=== PATIENT | male | born 1955 | race Caucasian/White ===

== ENCOUNTER → 2018-03-15 | Outpatient (CLI) | payer MEDICARE, OTHER | END | disposition home or self-care (01) | LOC: VAS 13:18 | DX: R22.41 Localized swelling, mass and lump, right lower limb (principal) | CPT/HCPCS: 93971 ==

== ENCOUNTER 2018-05-07 15:05 | Inpatient (IN) | payer MEDICARE, OTHER ==
[2018-05-07 16:11] LABS: ADD MAN DIFF? NO
[2018-05-07 16:17] LABS: WHITE BLOOD COUNT 23.6 10^3/ul (4.8-10.8)
[2018-05-07 16:17] LABS: ABNORMAL IP MESSAGE 1; BASOPHILS % 0.2 % (0.0-2.0); HEMATOCRIT 31.7 % (42.0-52.0); HEMOGLOBIN 10.4 g/dl (14.0-18.0); IMMATURE GRANS #M 0.14 10^3/ul; IMMATURE GRANS % (M) 0.6 %; LYMPHOCYTES # 0.4 10^3/ul (0.8-2.9); LYMPHOCYTES % 1.6 % (15.0-51.0); MEAN CORPUSCULAR HEMOGLOBIN 26.5 pg (29.0-33.0); MEAN CORPUSCULAR HGB CONC 32.8 g/dl (32.0-37.0); MEAN CORPUSCULAR VOLUME 80.7 fl (82.0-101.0); MEAN PLATELET VOLUME 11.5 fl (7.4-10.4); MONOCYTE # 1.6 10^3/ul (0.3-0.9); MONOCYTES % 6.8 % (0.0-11.0); NEUTROPHIL # 21.4 10^3/ul (1.6-7.5); NEUTROPHILS % 90.8 % (39.0-77.0); PLATELET COUNT 246 10^3/UL (140-415); POSITIVE DIFF @See below; RED BLOOD COUNT 3.93 10^6/ul (4.70-6.10); RED CELL DISTRIBUTION WIDTH 15.3 % (11.5-14.5)
[2018-05-07] MEDS: ACETAMINOPHEN 325 MG TAB PO (16:29)
[2018-05-07] MEDS: SODIUM CHLORIDE 0.9% 1L BAG IV* (16:30)
[2018-05-07] MEDS: CEFEPIME 2GM/50 ML (PMX) 50 ML IVPB (16:30)
[2018-05-07 16:31] LABS: INR 0.98; PROTIME 13.1 Sec (11.9-14.9)
[2018-05-07 16:32] LABS: LACTIC ACID 1.4 mmol/L (0.5-2.0)
[2018-05-07 16:34] LABS: ALANINE AMINOTRANSFERASE 19 IU/L (13-69); ALBUMIN 4.2 g/dl (3.3-4.9); ALBUMIN/GLOBULIN RATIO 1.31; ALKALINE PHOSPHATASE 179 IU/L (42-121); ANION GAP 16 (8-16); ASPARTATE AMINO TRANSFERASE 27 IU/L (15-46); BILIRUBIN,INDIRECT 0.2 mg/dl (0-1.1); BILIRUBIN,TOTAL 0.2 mg/dl (0.2-1.3); BLOOD UREA NITROGEN 47 mg/dl (7-20); CALCIUM 9.2 mg/dl (8.4-10.2); CARBON DIOXIDE 21 mmol/L (21-31); CHLORIDE 103 mmol/L (97-110); CREATININE 3.01 mg/dl (0.61-1.24); POTASSIUM 4.4 mmol/L (3.5-5.1); SODIUM 136 mmol/L (135-144); TOTAL PROTEIN 7.4 g/dl (6.1-8.1)
[2018-05-07] MEDS: VANCOMYCIN 1 GM (PMX) 250 ML IVPB (16:44)
[2018-05-07 16:45] LABS: GLUCOSE 486 mg/dl (70-220); TROPONIN-I < 0.010 ng/ml (0.000-0.120)
[2018-05-07] MEDS ORDERED: ACETAMINOPHEN 325 MG TAB PO ×2 (18:30→20:30)
[2018-05-07] MEDS ORDERED: ONDANSETRON 4 MG INJ IV ×2 (18:30→20:30)
[2018-05-07 18:42] LABS: LACTIC ACID 1.1 mmol/L (0.5-2.0)
[2018-05-07 19:53] LABS: ADD UMIC YES; UR ASCORBIC ACID NEGATIVE (NEGATIVE); UR BACTERIA FEW /HPF (NONE SEEN); UR BILIRUBIN (Dip) NEGATIVE (NEGATIVE); UR BLOOD (Dip) 2+ mg/dL (NEGATIVE); UR CLARITY SLIGHTLY CLOUDY (CLEAR); UR COLOR YELLOW (YELLOW); UR GLUCOSE (Dip) 3+ mg/dL (NEGATIVE); UR KETONES (Dip) NEGATIVE (NEGATIVE); UR LEUKOCYTE ESTERASE (Dip) 2+ Leu/ul (NEGATIVE); UR NITRITE (Dip) POSITIVE (NEGATIVE); UR RBC 3 /HPF (0-5); UR SPECIFIC GRAVITY (Dip) 1.011 (1.003-1.030); UR TOTAL PROTEIN (Dip) 3+ mg/dl (NEGATIVE); UR UROBILINOGEN (Dip) NEGATIVE (NEGATIVE); UR WBC 78 /HPF (0-5)
[2018-05-07] MEDS ORDERED: NACL 0.9% 3 ML SYG IV (20:30)
[2018-05-07] MEDS ORDERED: MAGNESIUM HYDROXIDE 30ML CUP PO (20:30)
[2018-05-07] MEDS ORDERED: VANCOMYCIN IV PER PHARMACY XX (20:30)
[2018-05-07] MEDS: AMLODIPINE 5 MG TAB PO (21:23)
[2018-05-07] MEDS: SOD CHLORIDE 0.9% 1,000 ML IV (21:23)
[2018-05-07] MEDS: HEPARIN 5,000 UNIT/0.5 ML VIAL SC (21:25)
[2018-05-07] MEDS: TAMSULOSIN (SR) 0.4 MG CAP PO (21:26)
[2018-05-07 22:12] LABS: LACTIC ACID 1.1 mmol/L (0.5-2.0)
[2018-05-07] MEDS: INSULIN ASPART [NOVOLOG] 3 ML PEN SC (22:53)
[2018-05-07] MEDS: INSULIN DETEMIR [LEVEMIR] (100 UNITS/ML) SYG SC (22:55)
[2018-05-08] MEDS: ACCU-CHEK XX (02:00)
[2018-05-08] MEDS: SOD CHLORIDE 0.9% 1,000 ML IV ×3 (03:20→20:48)
[2018-05-08] MEDS: LEVOTHYROXINE 25 MCG TAB PO (06:05)
[2018-05-08 06:26] LABS: ADD MAN DIFF? NO
[2018-05-08 06:34] LABS: WHITE BLOOD COUNT 16.5 10^3/ul (4.8-10.8)
[2018-05-08 06:34] LABS: BASOPHILS % 0.2 % (0.0-2.0); EOSINOPHILS % 0.2 % (0.0-7.0); HEMATOCRIT 30.4 % (42.0-52.0); HEMOGLOBIN 9.8 g/dl (14.0-18.0); IMMATURE GRANS % (M) 0.6 %; LYMPHOCYTES # 0.8 10^3/ul (0.8-2.9); LYMPHOCYTES % 4.8 % (15.0-51.0); MEAN CORPUSCULAR HEMOGLOBIN 26.1 pg (29.0-33.0); MEAN CORPUSCULAR HGB CONC 32.2 g/dl (32.0-37.0); MEAN CORPUSCULAR VOLUME 81.1 fl (82.0-101.0); MEAN PLATELET VOLUME 12.2 fl (7.4-10.4); MONOCYTE # 1.4 10^3/ul (0.3-0.9); MONOCYTES % 8.5 % (0.0-11.0); NEUTROPHIL # 14.1 10^3/ul (1.6-7.5); NEUTROPHILS % 85.7 % (39.0-77.0); PLATELET COUNT 223 10^3/UL (140-415); RED BLOOD COUNT 3.75 10^6/ul (4.70-6.10); RED CELL DISTRIBUTION WIDTH 15.6 % (11.5-14.5)
[2018-05-08 06:50] LABS: ALANINE AMINOTRANSFERASE 22 IU/L (13-69); ALBUMIN 3.6 g/dl (3.3-4.9); ALBUMIN/GLOBULIN RATIO 1.09; ALKALINE PHOSPHATASE 144 IU/L (42-121); ANION GAP 11 (8-16); ASPARTATE AMINO TRANSFERASE 36 IU/L (15-46); BILIRUBIN,INDIRECT 0.2 mg/dl (0-1.1); BILIRUBIN,TOTAL 0.2 mg/dl (0.2-1.3); BLOOD UREA NITROGEN 38 mg/dl (7-20); CALCIUM 9.3 mg/dl (8.4-10.2); CARBON DIOXIDE 23 mmol/L (21-31); CHLORIDE 114 mmol/L (97-110); CHOL/HDL RATIO 2.4 RATIO; CHOLESTEROL 98 mg/dl (100-200); GLUCOSE 83 mg/dl (70-220); HDL CHOLESTEROL 40 mg/dl (30-78); LDL CHOLESTEROL,CALCULATED 46 mg/dl; PHOSPHORUS 3.4 mg/dl (2.5-4.9); POTASSIUM 4.2 mmol/L (3.5-5.1); SODIUM 144 mmol/L (135-144); TOTAL PROTEIN 6.9 g/dl (6.1-8.1); TRIGLYCERIDES 58 mg/dl (0-149)
[2018-05-08 07:01] LABS: FREE THYROXINE INDEX (Calc) 2.18 ug/ml (0.65-3.89); T4 (THYROXINE) 5.6 ug/dl (5.5-11.0)
[2018-05-08 07:14] LABS: THYROID STIMULATING HORMONE 0.591 MIU/L (0.465-4.680)
[2018-05-08 07:47] LABS: HEMOGLOBIN A1C 7.4 % (0-5.9)
[2018-05-08] MEDS: INSULIN ASPART [NOVOLOG] 3 ML PEN SC ×7 (08:00→21:00)
[2018-05-08] MEDS: HEPARIN 5,000 UNIT/0.5 ML VIAL SC ×2 (08:05→21:02)
[2018-05-08] MEDS: LINAGLIPTIN 5 MG TABLET PO (08:06)
[2018-05-08] MEDS: AMLODIPINE 5 MG TAB PO ×2 (08:32→20:59)
[2018-05-08] MEDS: CEFEPIME 2GM/50 ML (PMX) 50 ML IVPB (08:32)
[2018-05-08] MEDS ORDERED: GLUCOSE GEL 15 GRAM TUBE PO ×2 (10:00)
[2018-05-08] MEDS ORDERED: DEXTROSE 50% 50 ML SYRINGE IV ×2 (10:00)
[2018-05-08] MEDS ORDERED: GLUCOSE GEL 15 GRAM TUBE BUCCAL (10:00)
[2018-05-08] MEDS ORDERED: GLUCAGON 1 MG INJ IM (10:00)
[2018-05-08] MEDS: TAMSULOSIN (SR) 0.4 MG CAP PO (20:58)
[2018-05-08] MEDS: INSULIN DETEMIR [LEVEMIR] (100 UNITS/ML) SYG SC (21:01)
[2018-05-09] MEDS: ACCU-CHEK XX (02:00)
[2018-05-09] MEDS: SOD CHLORIDE 0.9% 1,000 ML IV ×3 (04:28→18:44)
[2018-05-09 06:37] LABS: ADD MAN DIFF? NO
[2018-05-09 06:42] LABS: BASOPHILS % 0.2 % (0.0-2.0); EOSINOPHILS # 0.2 10^3/ul (0.0-0.5); EOSINOPHILS % 1.5 % (0.0-7.0); HEMATOCRIT 28.2 % (42.0-52.0); HEMOGLOBIN 9.1 g/dl (14.0-18.0); IMMATURE GRANS #M 0.08 10^3/ul; IMMATURE GRANS % (M) 0.6 %; LYMPHOCYTES % 7.1 % (15.0-51.0); MEAN CORPUSCULAR HEMOGLOBIN 26.2 pg (29.0-33.0); MEAN CORPUSCULAR HGB CONC 32.3 g/dl (32.0-37.0); MEAN CORPUSCULAR VOLUME 81.3 fl (82.0-101.0); MEAN PLATELET VOLUME 12.4 fl (7.4-10.4); MONOCYTES % 7.3 % (0.0-11.0); NEUTROPHIL # 11.6 10^3/ul (1.6-7.5); NEUTROPHILS % 83.3 % (39.0-77.0); PLATELET COUNT 220 10^3/UL (140-415); RED BLOOD COUNT 3.47 10^6/ul (4.70-6.10); RED CELL DISTRIBUTION WIDTH 15.8 % (11.5-14.5)
[2018-05-09 06:42] LABS: WHITE BLOOD COUNT 13.9 10^3/ul (4.8-10.8)
[2018-05-09] MEDS: LEVOTHYROXINE 25 MCG TAB PO (06:52)
[2018-05-09 07:06] LABS: ANION GAP 12 (8-16); BLOOD UREA NITROGEN 36 mg/dl (7-20); CALCIUM 8.6 mg/dl (8.4-10.2); CARBON DIOXIDE 20 mmol/L (21-31); CHLORIDE 117 mmol/L (97-110); CREATININE 2.32 mg/dl (0.61-1.24); GLUCOSE 61 mg/dl (70-220); POTASSIUM 3.9 mmol/L (3.5-5.1); SODIUM 145 mmol/L (135-144)
[2018-05-09] MEDS: INSULIN ASPART [NOVOLOG] 3 ML PEN SC ×7 (08:00→20:39)
[2018-05-09] MEDS: LINAGLIPTIN 5 MG TABLET PO (08:36)
[2018-05-09] MEDS: HEPARIN 5,000 UNIT/0.5 ML VIAL SC ×2 (08:37→20:41)
[2018-05-09] MEDS: CEFEPIME 2GM/50 ML (PMX) 50 ML IVPB (08:43)
[2018-05-09] MEDS: VANCOMYCIN 1 GM 250 ML IVPB (10:28)
[2018-05-09] MEDS: AMLODIPINE 5 MG TAB PO ×2 (13:05→20:36)
[2018-05-09] MEDS: TAMSULOSIN (SR) 0.4 MG CAP PO (20:35)
[2018-05-09] MEDS: INSULIN DETEMIR [LEVEMIR] (100 UNITS/ML) SYG SC (20:40)
[2018-05-09 22:34] LABS: PROSTATE SPECIFIC ANTIGEN 0.7 ng/ml (0.0-4.0)
[2018-05-10] MEDS: ACCU-CHEK XX (02:00)
[2018-05-10] MEDS: SOD CHLORIDE 0.9% 1,000 ML IV ×4 (04:03→23:57)
[2018-05-10] MEDS: LEVOTHYROXINE 25 MCG TAB PO (06:36)
[2018-05-10] MEDS: INSULIN ASPART [NOVOLOG] 3 ML PEN SC ×4 (08:00→21:29)
[2018-05-10 08:40] LABS: ADD MAN DIFF? NO
[2018-05-10 08:43] LABS: BASOPHIL # 0.1 10^3/ul (0.0-0.1); BASOPHILS % 0.4 % (0.0-2.0); EOSINOPHILS # 0.3 10^3/ul (0.0-0.5); EOSINOPHILS % 2.1 % (0.0-7.0); HEMATOCRIT 30.8 % (42.0-52.0); HEMOGLOBIN 9.6 g/dl (14.0-18.0); IMMATURE GRANS #M 0.06 10^3/ul; IMMATURE GRANS % (M) 0.5 %; LYMPHOCYTES % 8.1 % (15.0-51.0); MEAN CORPUSCULAR HEMOGLOBIN 25.7 pg (29.0-33.0); MEAN CORPUSCULAR HGB CONC 31.2 g/dl (32.0-37.0); MEAN CORPUSCULAR VOLUME 82.6 fl (82.0-101.0); MONOCYTE # 0.9 10^3/ul (0.3-0.9); MONOCYTES % 6.9 % (0.0-11.0); NEUTROPHIL # 10.2 10^3/ul (1.6-7.5); PLATELET COUNT 222 10^3/UL (140-415); RED BLOOD COUNT 3.73 10^6/ul (4.70-6.10)
[2018-05-10 08:43] LABS: WHITE BLOOD COUNT 12.5 10^3/ul (4.8-10.8)
[2018-05-10 09:12] LABS: ANION GAP 9 (8-16); BLOOD UREA NITROGEN 35 mg/dl (7-20); CALCIUM 8.6 mg/dl (8.4-10.2); CARBON DIOXIDE 19 mmol/L (21-31); CHLORIDE 118 mmol/L (97-110); CREATININE 2.44 mg/dl (0.61-1.24); GLUCOSE 77 mg/dl (70-220); POTASSIUM 4.2 mmol/L (3.5-5.1); SODIUM 142 mmol/L (135-144)
[2018-05-10] MEDS: CEFEPIME 2GM/50 ML (PMX) 50 ML IVPB (11:31)
[2018-05-10] MEDS: LINAGLIPTIN 5 MG TABLET PO (11:32)
[2018-05-10] MEDS: AMLODIPINE 5 MG TAB PO ×2 (11:32→21:33)
[2018-05-10] MEDS: HEPARIN 5,000 UNIT/0.5 ML VIAL SC ×2 (11:33→21:31)
[2018-05-10] MEDS: INSULIN DETEMIR [LEVEMIR] (100 UNITS/ML) SYG SC (21:29)
[2018-05-10] MEDS: TAMSULOSIN (SR) 0.4 MG CAP PO (21:31)
[2018-05-11] MEDS: ACCU-CHEK XX (02:00)
[2018-05-11] MEDS: SOD CHLORIDE 0.9% 1,000 ML IV ×3 (04:03→18:26)
[2018-05-11 05:48] LABS: ADD MAN DIFF? NO
[2018-05-11 05:54] LABS: WHITE BLOOD COUNT 11.1 10^3/ul (4.8-10.8)
[2018-05-11 05:54] LABS: BASOPHIL # 0.1 10^3/ul (0.0-0.1); BASOPHILS % 0.4 % (0.0-2.0); EOSINOPHILS # 0.3 10^3/ul (0.0-0.5); EOSINOPHILS % 2.4 % (0.0-7.0); HEMATOCRIT 30.6 % (42.0-52.0); HEMOGLOBIN 9.6 g/dl (14.0-18.0); IMMATURE GRANS #M 0.06 10^3/ul; IMMATURE GRANS % (M) 0.5 %; LYMPHOCYTES # 0.8 10^3/ul (0.8-2.9); LYMPHOCYTES % 7.3 % (15.0-51.0); MEAN CORPUSCULAR HEMOGLOBIN 25.6 pg (29.0-33.0); MEAN CORPUSCULAR HGB CONC 31.4 g/dl (32.0-37.0); MEAN CORPUSCULAR VOLUME 81.6 fl (82.0-101.0); MEAN PLATELET VOLUME 12.6 fl (7.4-10.4); MONOCYTE # 0.8 10^3/ul (0.3-0.9); MONOCYTES % 7.2 % (0.0-11.0); NEUTROPHIL # 9.1 10^3/ul (1.6-7.5); NEUTROPHILS % 82.2 % (39.0-77.0); PLATELET COUNT 241 10^3/UL (140-415); RED BLOOD COUNT 3.75 10^6/ul (4.70-6.10); RED CELL DISTRIBUTION WIDTH 16.1 % (11.5-14.5)
[2018-05-11] MEDS: LEVOTHYROXINE 25 MCG TAB PO (06:24)
[2018-05-11 06:42] LABS: ANION GAP 10 (8-16); BLOOD UREA NITROGEN 31 mg/dl (7-20); CALCIUM 8.6 mg/dl (8.4-10.2); CARBON DIOXIDE 18 mmol/L (21-31); CHLORIDE 122 mmol/L (97-110); CREATININE 2.36 mg/dl (0.61-1.24); GLUCOSE 97 mg/dl (70-220); POTASSIUM 4.1 mmol/L (3.5-5.1); SODIUM 146 mmol/L (135-144)
[2018-05-11] MEDS: INSULIN ASPART [NOVOLOG] 3 ML PEN SC ×4 (07:52→20:38)
[2018-05-11] MEDS: HEPARIN 5,000 UNIT/0.5 ML VIAL SC ×2 (08:31→20:38)
[2018-05-11] MEDS: LINAGLIPTIN 5 MG TABLET PO (08:32)
[2018-05-11] MEDS: CEFTRIAXONE 1 GM/NS 50 ML IVPB (08:33)
[2018-05-11] MEDS: AMLODIPINE 5 MG TAB PO ×2 (08:33→20:35)
[2018-05-11] MEDS: BETHANECHOL 10 MG TAB PO (20:35)
[2018-05-11] MEDS: TAMSULOSIN (SR) 0.4 MG CAP PO (20:35)
[2018-05-11] MEDS: INSULIN DETEMIR [LEVEMIR] (100 UNITS/ML) SYG SC (20:37)
[2018-05-12] MEDS: ACCU-CHEK XX (03:00)
[2018-05-12] MEDS: SOD CHLORIDE 0.9% 1,000 ML IV ×3 (03:01→20:14)
[2018-05-12] MEDS: LEVOTHYROXINE 25 MCG TAB PO (06:01)
[2018-05-12] MEDS: INSULIN ASPART [NOVOLOG] 3 ML PEN SC ×4 (07:53→20:42)
[2018-05-12] MEDS: BETHANECHOL 10 MG TAB PO ×3 (08:15→20:14)
[2018-05-12] MEDS: HEPARIN 5,000 UNIT/0.5 ML VIAL SC ×2 (08:15→20:16)
[2018-05-12] MEDS: LINAGLIPTIN 5 MG TABLET PO (08:15)
[2018-05-12] MEDS: AMLODIPINE 5 MG TAB PO ×2 (08:19→20:17)
[2018-05-12] MEDS: CEFTRIAXONE 1 GM/NS 50 ML IVPB (08:19)
[2018-05-12] MEDS: TAMSULOSIN (SR) 0.4 MG CAP PO (20:14)
[2018-05-12] MEDS: INSULIN DETEMIR [LEVEMIR] (100 UNITS/ML) SYG SC (20:16)
[2018-05-13] MEDS: ACCU-CHEK XX (01:56)
[2018-05-13] MEDS: ALBUTEROL/IPRATROPIUM (NEB) 3 ML AMP HHN ×2 (03:44→13:39)
[2018-05-13] MEDS: SOD CHLORIDE 0.9% 1,000 ML IV ×2 (04:02→12:37)
[2018-05-13] MEDS: LEVOTHYROXINE 25 MCG TAB PO (06:36)
[2018-05-13] MEDS: INSULIN ASPART [NOVOLOG] 3 ML PEN SC ×7 (07:35→22:21)
[2018-05-13 08:27] LABS: ADD MAN DIFF? NO
[2018-05-13] MEDS: CEFTRIAXONE 1 GM/NS 50 ML IVPB (08:28)
[2018-05-13] MEDS: AMLODIPINE 5 MG TAB PO ×2 (08:31→22:16)
[2018-05-13] MEDS: LINAGLIPTIN 5 MG TABLET PO (08:31)
[2018-05-13] MEDS: BETHANECHOL 10 MG TAB PO ×3 (08:32→22:18)
[2018-05-13] MEDS: HEPARIN 5,000 UNIT/0.5 ML VIAL SC ×2 (08:33→21:59)
[2018-05-13 08:39] LABS: BASOPHILS % 0.2 % (0.0-2.0); EOSINOPHILS # 0.2 10^3/ul (0.0-0.5); EOSINOPHILS % 1.6 % (0.0-7.0); HEMATOCRIT 29.8 % (42.0-52.0); HEMOGLOBIN 9.2 g/dl (14.0-18.0); LYMPHOCYTES # 0.9 10^3/ul (0.8-2.9); LYMPHOCYTES % 7.1 % (15.0-51.0); MEAN CORPUSCULAR HEMOGLOBIN 25.7 pg (29.0-33.0); MEAN CORPUSCULAR HGB CONC 30.9 g/dl (32.0-37.0); MEAN CORPUSCULAR VOLUME 83.2 fl (82.0-101.0); MEAN PLATELET VOLUME 11.9 fl (7.4-10.4); MONOCYTE # 1.1 10^3/ul (0.3-0.9); MONOCYTES % 8.5 % (0.0-11.0); NEUTROPHIL # 10.8 10^3/ul (1.6-7.5); NEUTROPHILS % 81.5 % (39.0-77.0); PLATELET COUNT 270 10^3/UL (140-415); RED BLOOD COUNT 3.58 10^6/ul (4.70-6.10); RED CELL DISTRIBUTION WIDTH 16.2 % (11.5-14.5)
[2018-05-13 08:39] LABS: WHITE BLOOD COUNT 13.2 10^3/ul (4.8-10.8)
[2018-05-13 09:04] LABS: ANION GAP 13 (8-16); BLOOD UREA NITROGEN 30 mg/dl (7-20); CALCIUM 8.9 mg/dl (8.4-10.2); CARBON DIOXIDE 17 mmol/L (21-31); CHLORIDE 122 mmol/L (97-110); CREATININE 2.38 mg/dl (0.61-1.24); GLUCOSE 70 mg/dl (70-220); POTASSIUM 4.2 mmol/L (3.5-5.1); SODIUM 148 mmol/L (135-144)
[2018-05-13] MEDS: FUROSEMIDE 40 MG INJ IV (15:16)
[2018-05-13] MEDS: INSULIN DETEMIR [LEVEMIR] (100 UNITS/ML) SYG SC (21:59)
[2018-05-13] MEDS: TAMSULOSIN (SR) 0.4 MG CAP PO (22:15)
[2018-05-14] MEDS: ACCU-CHEK XX (02:00)
[2018-05-14 06:26] LABS: ADD MAN DIFF? NO
[2018-05-14 06:30] LABS: WHITE BLOOD COUNT 14.2 10^3/ul (4.8-10.8)
[2018-05-14 06:30] LABS: BASOPHIL # 0.1 10^3/ul (0.0-0.1); BASOPHILS % 0.4 % (0.0-2.0); EOSINOPHILS # 0.3 10^3/ul (0.0-0.5); EOSINOPHILS % 2.3 % (0.0-7.0); HEMATOCRIT 29.7 % (42.0-52.0); HEMOGLOBIN 9.2 g/dl (14.0-18.0); LYMPHOCYTES % 7.3 % (15.0-51.0); MEAN CORPUSCULAR HEMOGLOBIN 25.3 pg (29.0-33.0); MEAN CORPUSCULAR VOLUME 81.8 fl (82.0-101.0); MEAN PLATELET VOLUME 11.8 fl (7.4-10.4); MONOCYTE # 1.2 10^3/ul (0.3-0.9); MONOCYTES % 8.4 % (0.0-11.0); NEUTROPHIL # 11.4 10^3/ul (1.6-7.5); NEUTROPHILS % 80.2 % (39.0-77.0); PLATELET COUNT 296 10^3/UL (140-415); RED BLOOD COUNT 3.63 10^6/ul (4.70-6.10); RED CELL DISTRIBUTION WIDTH 16.5 % (11.5-14.5)
[2018-05-14 06:56] LABS: ANION GAP 10 (8-16); BLOOD UREA NITROGEN 30 mg/dl (7-20); CALCIUM 9.2 mg/dl (8.4-10.2); CARBON DIOXIDE 20 mmol/L (21-31); CHLORIDE 121 mmol/L (97-110); CREATININE 2.55 mg/dl (0.61-1.24); GLUCOSE 109 mg/dl (70-220); POTASSIUM 4.2 mmol/L (3.5-5.1); SODIUM 147 mmol/L (135-144)
[2018-05-14] MEDS: LEVOTHYROXINE 25 MCG TAB PO (07:05)
[2018-05-14] MEDS: INSULIN ASPART [NOVOLOG] 3 ML PEN SC ×7 (08:00→21:18)
[2018-05-14] MEDS: HEPARIN 5,000 UNIT/0.5 ML VIAL SC ×2 (08:55→21:18)
[2018-05-14] MEDS: CEFTRIAXONE 1 GM/NS 50 ML IVPB (08:55)
[2018-05-14] MEDS: BETHANECHOL 10 MG TAB PO ×3 (08:56→21:16)
[2018-05-14] MEDS: AMLODIPINE 5 MG TAB PO ×2 (08:56→21:16)
[2018-05-14] MEDS: LINAGLIPTIN 5 MG TABLET PO (08:56)
[2018-05-14] MEDS: DOCUSATE SODIUM 100 MG CAP PO (09:24)
[2018-05-14] MEDS: FINASTERIDE 5 MG TAB PO (17:37)
[2018-05-14] MEDS: INSULIN DETEMIR [LEVEMIR] (100 UNITS/ML) SYG SC (21:15)
[2018-05-14] MEDS: TAMSULOSIN (SR) 0.4 MG CAP PO (21:17)
[2018-05-15] MEDS: ACCU-CHEK XX (02:00)
[2018-05-15] MEDS: LEVOTHYROXINE 25 MCG TAB PO (07:57)
[2018-05-15] MEDS: INSULIN ASPART [NOVOLOG] 3 ML PEN SC ×7 (07:59→22:56)
[2018-05-15] MEDS: BETHANECHOL 10 MG TAB PO ×3 (08:31→21:30)
[2018-05-15] MEDS: TAMSULOSIN (SR) 0.4 MG CAP PO ×2 (08:31→21:30)
[2018-05-15] MEDS: LINAGLIPTIN 5 MG TABLET PO (08:31)
[2018-05-15] MEDS: FINASTERIDE 5 MG TAB PO (08:31)
[2018-05-15] MEDS: CEFTRIAXONE 1 GM/NS 50 ML IVPB (08:31)
[2018-05-15] MEDS: HEPARIN 5,000 UNIT/0.5 ML VIAL SC ×2 (08:31→23:38)
[2018-05-15] MEDS: AMLODIPINE 5 MG TAB PO ×2 (08:32→21:31)
[2018-05-15] MEDS: INSULIN DETEMIR [LEVEMIR] (100 UNITS/ML) SYG SC (22:57)
[2018-05-16] MEDS: ACCU-CHEK XX (02:39)
[2018-05-16] MEDS: LEVOTHYROXINE 25 MCG TAB PO (05:38)
[2018-05-16] MEDS: INSULIN ASPART [NOVOLOG] 3 ML PEN SC ×7 (07:58→21:57)
[2018-05-16] MEDS: FINASTERIDE 5 MG TAB PO (08:34)
[2018-05-16] MEDS: CEFTRIAXONE 1 GM/NS 50 ML IVPB (08:34)
[2018-05-16] MEDS: BETHANECHOL 10 MG TAB PO ×3 (08:34→21:51)
[2018-05-16] MEDS: AMLODIPINE 5 MG TAB PO ×2 (08:35→21:51)
[2018-05-16] MEDS: HEPARIN 5,000 UNIT/0.5 ML VIAL SC ×2 (08:40→21:56)
[2018-05-16] MEDS: TAMSULOSIN (SR) 0.4 MG CAP PO ×2 (08:42→21:51)
[2018-05-16] MEDS: LINAGLIPTIN 5 MG TABLET PO (08:42)
[2018-05-16] MEDS: INSULIN DETEMIR [LEVEMIR] (100 UNITS/ML) SYG SC (21:54)
[2018-05-17] MEDS: ACCU-CHEK XX (02:00)
[2018-05-17 06:06] LABS: ALANINE AMINOTRANSFERASE 70 IU/L (13-69); ALBUMIN 2.7 g/dl (3.3-4.9); ALBUMIN/GLOBULIN RATIO 0.87; ALKALINE PHOSPHATASE 153 IU/L (42-121); ANION GAP 10 (8-16); ASPARTATE AMINO TRANSFERASE 42 IU/L (15-46); BLOOD UREA NITROGEN 40 mg/dl (7-20); CALCIUM 8.8 mg/dl (8.4-10.2); CARBON DIOXIDE 19 mmol/L (21-31); CHLORIDE 121 mmol/L (97-110); CREATININE 2.64 mg/dl (0.61-1.24); GLUCOSE 153 mg/dl (70-220); POTASSIUM 4.1 mmol/L (3.5-5.1); SODIUM 146 mmol/L (135-144); TOTAL PROTEIN 5.8 g/dl (6.1-8.1)
[2018-05-17] MEDS: LEVOTHYROXINE 25 MCG TAB PO (06:34)
[2018-05-17] MEDS: INSULIN ASPART [NOVOLOG] 3 ML PEN SC ×7 (08:00→20:51)
[2018-05-17] MEDS: CEFTRIAXONE 1 GM/NS 50 ML IVPB (08:11)
[2018-05-17] MEDS: HEPARIN 5,000 UNIT/0.5 ML VIAL SC ×2 (08:13→20:50)
[2018-05-17] MEDS: LINAGLIPTIN 5 MG TABLET PO (08:17)
[2018-05-17] MEDS: AMLODIPINE 5 MG TAB PO ×2 (08:17→20:47)
[2018-05-17] MEDS: TAMSULOSIN (SR) 0.4 MG CAP PO ×2 (08:17→20:43)
[2018-05-17] MEDS: FINASTERIDE 5 MG TAB PO (08:17)
[2018-05-17] MEDS: BETHANECHOL 10 MG TAB PO ×3 (08:17→20:43)
[2018-05-17] MEDS: INSULIN DETEMIR [LEVEMIR] (100 UNITS/ML) SYG SC (20:51)
[2018-05-18] MEDS: ACCU-CHEK XX (02:00)
[2018-05-18] MEDS: LEVOTHYROXINE 25 MCG TAB PO (06:02)
[2018-05-18] MEDS: INSULIN ASPART [NOVOLOG] 3 ML PEN SC ×7 (08:00→20:24)
[2018-05-18] MEDS: CEFTRIAXONE 1 GM/NS 50 ML IVPB (08:28)
[2018-05-18] MEDS: HEPARIN 5,000 UNIT/0.5 ML VIAL SC ×2 (08:29→20:23)
[2018-05-18] MEDS: BETHANECHOL 10 MG TAB PO ×3 (08:30→21:44)
[2018-05-18] MEDS: TAMSULOSIN (SR) 0.4 MG CAP PO ×2 (08:31→20:19)
[2018-05-18] MEDS: FINASTERIDE 5 MG TAB PO (08:31)
[2018-05-18] MEDS: LINAGLIPTIN 5 MG TABLET PO (08:31)
[2018-05-18] MEDS: AMLODIPINE 5 MG TAB PO ×2 (08:36→20:22)
[2018-05-18] MEDS: ALBUTEROL/IPRATROPIUM (NEB) 3 ML AMP HHN ×2 (08:57→20:37)
[2018-05-18] MEDS: FUROSEMIDE 20 MG INJ IV (16:08)
[2018-05-18] MEDS: DOCUSATE SODIUM 100 MG CAP PO (17:12)
[2018-05-18] MEDS: INSULIN DETEMIR [LEVEMIR] (100 UNITS/ML) SYG SC (20:25)
[2018-05-19] MEDS: ACCU-CHEK XX (02:00)
[2018-05-19] MEDS: LEVOTHYROXINE 25 MCG TAB PO (06:43)
[2018-05-19] MEDS: ALBUTEROL/IPRATROPIUM (NEB) 3 ML AMP HHN (07:46)
[2018-05-19] MEDS: INSULIN ASPART [NOVOLOG] 3 ML PEN SC ×7 (08:00→17:39)
[2018-05-19] MEDS: FINASTERIDE 5 MG TAB PO (09:25)
[2018-05-19] MEDS: AMLODIPINE 5 MG TAB PO (09:25)
[2018-05-19] MEDS: TAMSULOSIN (SR) 0.4 MG CAP PO (09:25)
[2018-05-19] MEDS: LINAGLIPTIN 5 MG TABLET PO (09:25)
[2018-05-19] MEDS: BETHANECHOL 10 MG TAB PO ×2 (09:25→15:15)
[2018-05-19] MEDS: CEFTRIAXONE 1 GM/NS 50 ML IVPB (09:26)
[2018-05-19] MEDS: HEPARIN 5,000 UNIT/0.5 ML VIAL SC (09:27)
== END 2018-05-19 18:13 | disposition home or self-care (01) | DRG 871 ==
LOC: E/R 15:05 → PP2 18:09
DX: A41.9 Sepsis, unspecified organism (principal); R65.21 Severe sepsis with septic shock; N39.0 Urinary tract infection, site not specified; N17.9 Acute kidney failure, unspecified; D64.9 Anemia, unspecified; E11.65 Type 2 diabetes mellitus with hyperglycemia; N40.1 Benign prostatic hyperplasia with lower urinary tract symptoms; E03.9 Hypothyroidism, unspecified; A49.8 Other bacterial infections of unspecified site; N31.9 Neuromuscular dysfunction of bladder, unspecified; N18.3 Chronic kidney disease, stage 3 (moderate); R39.14 Feeling of incomplete bladder emptying; F71 Moderate intellectual disabilities
CPT/HCPCS: 36415; 71045; 73130-RT; 76775; 76856; 80048; 80053; 80061; 81001; 82962; 83036; 83605; 83735; 84100; 84153; 84154; 84436; 84443; 84479; 84484; 85025; 85610; 85730; 87040; 87086; 93005; 93306; 94640; 94664; 96374; 96375; 97110; 97116; 97162; 97530; 99291-25

== ENCOUNTER 2018-05-29 11:08 | Inpatient (IN) | payer MEDICARE, OTHER ==
[2018-05-29] MEDS ORDERED: ACETAMINOPHEN 325 MG TAB PO (12:00)
[2018-05-29] MEDS ORDERED: ONDANSETRON 4 MG INJ IV (12:00)
[2018-05-29 12:01] LABS: ADD MAN DIFF? NO
[2018-05-29 12:08] LABS: BASOPHIL # 0.1 10^3/ul (0.0-0.1); BASOPHILS % 0.4 % (0.0-2.0); EOSINOPHILS # 0.4 10^3/ul (0.0-0.5); EOSINOPHILS % 2.5 % (0.0-7.0); HEMATOCRIT 27.9 % (42.0-52.0); HEMOGLOBIN 8.6 g/dl (14.0-18.0); LYMPHOCYTES # 0.7 10^3/ul (0.8-2.9); LYMPHOCYTES % 4.1 % (15.0-51.0); MEAN CORPUSCULAR HEMOGLOBIN 24.9 pg (29.0-33.0); MEAN CORPUSCULAR HGB CONC 30.8 g/dl (32.0-37.0); MEAN CORPUSCULAR VOLUME 80.6 fl (82.0-101.0); MEAN PLATELET VOLUME 11.8 fl (7.4-10.4); MONOCYTE # 0.8 10^3/ul (0.3-0.9); NEUTROPHIL # 14.6 10^3/ul (1.6-7.5); NEUTROPHILS % 87.5 % (39.0-77.0); PLATELET COUNT 310 10^3/UL (140-415); RED BLOOD COUNT 3.46 10^6/ul (4.70-6.10); RED CELL DISTRIBUTION WIDTH 15.6 % (11.5-14.5)
[2018-05-29 12:08] LABS: WHITE BLOOD COUNT 16.7 10^3/ul (4.8-10.8)
[2018-05-29 12:27] LABS: ALANINE AMINOTRANSFERASE 29 IU/L (13-69); ALBUMIN 3.3 g/dl (3.3-4.9); ALKALINE PHOSPHATASE 166 IU/L (42-121); ANION GAP 17 (8-16); ASPARTATE AMINO TRANSFERASE 21 IU/L (15-46); BLOOD UREA NITROGEN 56 mg/dl (7-20); CALCIUM 8.8 mg/dl (8.4-10.2); CARBON DIOXIDE 17 mmol/L (21-31); CHLORIDE 115 mmol/L (97-110); CREATININE 3.54 mg/dl (0.61-1.24); GLUCOSE 218 mg/dl (70-220); POTASSIUM 5.4 mmol/L (3.5-5.1); SODIUM 144 mmol/L (135-144); TOTAL PROTEIN 6.6 g/dl (6.1-8.1)
[2018-05-29 12:31] LABS: INR 1.05; PROTIME 13.8 Sec (11.9-14.9); PT RATIO 1.1
[2018-05-29 12:32] LABS: PARTIAL THROMBOPLASTIN TIME 27.8 Sec (25.0-35.0)
[2018-05-29 12:37] LABS: TROPONIN-I < 0.012 ng/ml (0.000-0.120)
[2018-05-29] MEDS ORDERED: GLUCOSE GEL 15 GRAM TUBE PO ×2 (13:30)
[2018-05-29] MEDS ORDERED: GLUCOSE GEL 15 GRAM TUBE BUCCAL (13:30)
[2018-05-29] MEDS ORDERED: DEXTROSE 50% 50 ML SYRINGE IV ×2 (13:30)
[2018-05-29] MEDS ORDERED: GLUCAGON 1 MG INJ IM (13:30)
[2018-05-29 14:11] LABS: LACTIC ACID 0.6 mmol/L (0.5-2.0)
[2018-05-29 14:17] LABS: ALANINE AMINOTRANSFERASE 40 IU/L (13-69); ALBUMIN 3.2 g/dl (3.3-4.9); ALKALINE PHOSPHATASE 176 IU/L (42-121); ANION GAP 17 (8-16); ASPARTATE AMINO TRANSFERASE 22 IU/L (15-46); BILIRUBIN,INDIRECT 0.1 mg/dl (0-1.1); BILIRUBIN,TOTAL 0.1 mg/dl (0.2-1.3); BLOOD UREA NITROGEN 55 mg/dl (7-20); CALCIUM 9.1 mg/dl (8.4-10.2); CARBON DIOXIDE 18 mmol/L (21-31); CHLORIDE 113 mmol/L (97-110); CREATININE 3.48 mg/dl (0.61-1.24); GLUCOSE 226 mg/dl (70-220); POTASSIUM 5.5 mmol/L (3.5-5.1); SODIUM 142 mmol/L (135-144); TOTAL PROTEIN 6.4 g/dl (6.1-8.1)
[2018-05-29 14:33] LABS: IONIZED CALCIUM 1.2 mmol/L (1.1-1.4)
[2018-05-29] MEDS: ALPRAZOLAM 0.25 MG TAB PO (15:33)
[2018-05-29 16:53] LABS: LACTIC ACID 0.7 mmol/L (0.5-2.0)
[2018-05-29] MEDS: FUROSEMIDE 40 MG INJ IV (17:14)
[2018-05-29] MEDS: LISINOPRIL 20 MG TAB PO (21:08)
[2018-05-29] MEDS: AMLODIPINE 5 MG TAB PO (21:08)
[2018-05-29] MEDS: BETHANECHOL 10 MG TAB PO (21:08)
[2018-05-30] MEDS: LEVOTHYROXINE 25 MCG TAB PO (06:14)
[2018-05-30 06:34] LABS: ADD MAN DIFF? NO
[2018-05-30 06:42] LABS: WHITE BLOOD COUNT 13.2 10^3/ul (4.8-10.8)
[2018-05-30 06:42] LABS: BASOPHILS % 0.3 % (0.0-2.0); EOSINOPHILS # 0.3 10^3/ul (0.0-0.5); HEMATOCRIT 25.7 % (42.0-52.0); HEMOGLOBIN 7.9 g/dl (14.0-18.0); LYMPHOCYTES # 0.7 10^3/ul (0.8-2.9); LYMPHOCYTES % 5.1 % (15.0-51.0); MEAN CORPUSCULAR HEMOGLOBIN 24.8 pg (29.0-33.0); MEAN CORPUSCULAR HGB CONC 30.7 g/dl (32.0-37.0); MEAN CORPUSCULAR VOLUME 80.6 fl (82.0-101.0); MEAN PLATELET VOLUME 12.6 fl (7.4-10.4); MONOCYTE # 0.8 10^3/ul (0.3-0.9); MONOCYTES % 5.7 % (0.0-11.0); NEUTROPHIL # 11.4 10^3/ul (1.6-7.5); NEUTROPHILS % 86.5 % (39.0-77.0); PLATELET COUNT 264 10^3/UL (140-415); RED BLOOD COUNT 3.19 10^6/ul (4.70-6.10); RED CELL DISTRIBUTION WIDTH 15.9 % (11.5-14.5)
[2018-05-30 07:13] LABS: C-REACTIVE PROTEIN 3.6 mg/dl (0.0-0.9)
[2018-05-30] MEDS: ALPRAZOLAM 0.25 MG TAB PO (07:21)
[2018-05-30] MEDS: TAMSULOSIN (SR) 0.4 MG CAP PO (09:48)
[2018-05-30] MEDS: LORATADINE 10 MG TAB GTB ×2 (09:48→21:28)
[2018-05-30] MEDS: LINAGLIPTIN 5 MG TABLET PO (09:49)
[2018-05-30] MEDS: BETHANECHOL 10 MG TAB PO ×3 (09:49→21:30)
[2018-05-30] MEDS: AMLODIPINE 5 MG TAB PO ×2 (09:49→21:28)
[2018-05-30] MEDS: FUROSEMIDE 40 MG INJ IV (09:50)
[2018-05-30] MEDS: ERTAPENEM SODIUM 1 GM in SOD CHLORIDE 0.9% 100 ML IVPB (10:05)
[2018-05-30 10:19] LABS: ERYTHROCYTE SEDIMENTATION RATE 30 mm/Hr (0-20)
[2018-05-30 11:36] LABS: ADD UMIC YES; UR ASCORBIC ACID NEGATIVE (NEGATIVE); UR BILIRUBIN (Dip) NEGATIVE (NEGATIVE); UR BLOOD (Dip) 1+ mg/dL (NEGATIVE); UR CLARITY CLOUDY (CLEAR); UR COLOR STRAW (YELLOW); UR GLUCOSE (Dip) NEGATIVE (NEGATIVE); UR HYPHAE YEAST FEW /HPF (NONE SEEN); UR KETONES (Dip) NEGATIVE (NEGATIVE); UR LEUKOCYTE ESTERASE (Dip) 3+ Leu/ul (NEGATIVE); UR NITRITE (Dip) NEGATIVE (NEGATIVE); UR RBC 2 /HPF (0-5); UR SPECIFIC GRAVITY (Dip) 1.009 (1.003-1.030); UR TOTAL PROTEIN (Dip) 2+ mg/dl (NEGATIVE); UR UROBILINOGEN (Dip) NEGATIVE (NEGATIVE); UR WBC 100 /HPF (0-5)
[2018-05-30 11:46] LABS: SODIUM,URINE RANDOM 87 mmol/L (30-90)
[2018-05-30 11:46] LABS: CREATININE,URINE RANDOM 46.09 mg/dl (20-370)
[2018-05-31] MEDS: LEVOTHYROXINE 25 MCG TAB PO (06:48)
[2018-05-31] MEDS: FUROSEMIDE 40 MG INJ IV (09:56)
[2018-05-31] MEDS: TAMSULOSIN (SR) 0.4 MG CAP PO (09:56)
[2018-05-31] MEDS: BETHANECHOL 10 MG TAB PO ×3 (09:56→21:44)
[2018-05-31] MEDS: AMLODIPINE 5 MG TAB PO ×2 (09:57→21:44)
[2018-05-31] MEDS: LORATADINE 10 MG TAB GTB ×2 (09:57→21:42)
[2018-05-31] MEDS: LINAGLIPTIN 5 MG TABLET PO (09:57)
[2018-05-31] MEDS: FLUCONAZOLE 200 MG (PMX) 100 ML IVPB (16:02)
[2018-05-31] MEDS: FINASTERIDE 5 MG TAB PO (21:42)
[2018-06-01] MEDS: LEVOTHYROXINE 25 MCG TAB PO (06:24)
[2018-06-01 08:17] LABS: ADD MAN DIFF? NO
[2018-06-01 08:22] LABS: WHITE BLOOD COUNT 11.5 10^3/ul (4.8-10.8)
[2018-06-01 08:22] LABS: BASOPHILS % 0.3 % (0.0-2.0); EOSINOPHILS # 0.4 10^3/ul (0.0-0.5); EOSINOPHILS % 3.5 % (0.0-7.0); HEMATOCRIT 29.5 % (42.0-52.0); LYMPHOCYTES # 1.2 10^3/ul (0.8-2.9); LYMPHOCYTES % 10.8 % (15.0-51.0); MEAN CORPUSCULAR HEMOGLOBIN 25.1 pg (29.0-33.0); MEAN CORPUSCULAR HGB CONC 30.5 g/dl (32.0-37.0); MEAN CORPUSCULAR VOLUME 82.4 fl (82.0-101.0); MEAN PLATELET VOLUME 12.6 fl (7.4-10.4); MONOCYTE # 0.9 10^3/ul (0.3-0.9); MONOCYTES % 7.4 % (0.0-11.0); NEUTROPHIL # 8.9 10^3/ul (1.6-7.5); NEUTROPHILS % 77.7 % (39.0-77.0); PLATELET COUNT 290 10^3/UL (140-415); RED BLOOD COUNT 3.58 10^6/ul (4.70-6.10); RED CELL DISTRIBUTION WIDTH 15.3 % (11.5-14.5)
[2018-06-01 08:37] LABS: ANION GAP 13 (8-16); BLOOD UREA NITROGEN 35 mg/dl (7-20); CARBON DIOXIDE 23 mmol/L (21-31); CHLORIDE 118 mmol/L (97-110); CREATININE 2.91 mg/dl (0.61-1.24); GLUCOSE 122 mg/dl (70-220); POTASSIUM 4.6 mmol/L (3.5-5.1); SODIUM 149 mmol/L (135-144)
[2018-06-01] MEDS: TAMSULOSIN (SR) 0.4 MG CAP PO (08:49)
[2018-06-01] MEDS: BETHANECHOL 10 MG TAB PO ×2 (08:49→13:19)
[2018-06-01] MEDS: FINASTERIDE 5 MG TAB PO (08:49)
[2018-06-01] MEDS: FUROSEMIDE 40 MG INJ IV (08:50)
[2018-06-01] MEDS: LORATADINE 10 MG TAB GTB (08:50)
[2018-06-01] MEDS: AMLODIPINE 5 MG TAB PO (08:50)
[2018-06-01] MEDS: LINAGLIPTIN 5 MG TABLET PO (08:50)
[2018-06-01 09:18] LABS: AADO2 Arterial 49.6 mmHg (7.0-24.0); Allen Test ACCEPTAB; Arterial Base Excess -0.5 mmol/L (-3.0-3); Arterial Blood Gas Oxygen Sat 90.3 mmHG (95.0-98.0); Arterial COHb 0.3 % (0.0-3.0); Arterial Fraction of Oxyhgb 89.9 % (93.0-99.0); Arterial HCO3 23.4 mmol/L (22.0-26.0); Arterial MetHb 0.1 % (0.0-1.5); Arterial Total Hemglobin 9.9 g/dl (12.0-18.0); Arterial pCO2 35.1 mmhg (35-45); MODE ROOM AIR; Site Left Radial
[2018-06-01 11:08] LABS: IRON 28 ug/dl (35-150)
[2018-06-01 11:18] LABS: % IRON SATURATION 8 % SAT (22-52); TOTAL IRON BINDING CAPACITY 370 ug/dl (241-421)
[2018-06-01 11:55] LABS: FERRITIN 8.9 ng/ml (11.1-264.0)
[2018-06-01] MEDS ORDERED: FLUCONAZOLE 200 MG (PMX) 100 ML IVPB (15:00)
[2018-06-01] MEDS ORDERED: EPOETIN 10000 UNITS/ML (NON ESRD/NON ONCOLOGY) SC (17:00)
== END 2018-06-01 17:00 | disposition home health service (06) | DRG 699 ==
LOC: E/R 11:08 → PP2 11:44
PROC: 0T9B70Z Drainage of Bladder with Drainage Device, Via Natural or Artificial Opening (ICD-10-PCS; principal; 2018-05-30)
DX: E11.22 Type 2 diabetes mellitus with diabetic chronic kidney disease (principal); B37.49 Other urogenital candidiasis; E87.2 Acidosis; I12.9 Hypertensive chronic kidney disease with stage 1 through stage 4 chronic kidney disease, or unspecified chronic kidney disease; N04.9 Nephrotic syndrome with unspecified morphologic changes; N17.9 Acute kidney failure, unspecified; N18.3 Chronic kidney disease, stage 3 (moderate); E03.9 Hypothyroidism, unspecified; N31.9 Neuromuscular dysfunction of bladder, unspecified; E11.65 Type 2 diabetes mellitus with hyperglycemia; F71 Moderate intellectual disabilities; N47.1 Phimosis; R33.8 Other retention of urine; E87.70 Fluid overload, unspecified
CPT/HCPCS: 36415; 36600; 71045; 76775; 80048; 80053; 81001; 82330; 82728; 82803; 82962; 83540; 83605; 84155; 84300; 84443; 84484; 85025; 85610; 85651; 85730; 86140; 86320; 87040; 87086; 93005; 99285-25

== ENCOUNTER → 2018-06-07 | Outpatient (CLI) | payer MEDICARE, OTHER | END | disposition home or self-care (01) | LOC: VAS 12:37 | DX: R60.0 Localized edema (principal) | CPT/HCPCS: 93970 ==

== ENCOUNTER 2019-03-20 20:26 | Inpatient (IN) | payer MEDICARE, MEDICAID, OTHER ==
[~2019-03-20 20:26] MED LIST: ETOMIDATE 20 MG INJ; MIDAZOLAM 1 MG/ML 2 ML INJ; ROCURONIUM 50 MG INJ
[2019-03-20 20:56] LABS: WHITE BLOOD COUNT 27.4 10^3/ul (4.8-10.8)
[2019-03-20 20:56] LABS: ABNORMAL IP MESSAGE 1; HEMATOCRIT 26.2 % (42.0-52.0); HEMOGLOBIN 7.6 g/dl (14.0-18.0); MEAN CORPUSCULAR HEMOGLOBIN 22.2 pg (29.0-33.0); MEAN CORPUSCULAR VOLUME 76.4 fl (82.0-101.0); NUCLEATED RED BLOOD CELLS% 0.3 /100WBC (0.0-0.0); POSITIVE DIFF @See below; RED BLOOD COUNT 3.43 10^6/ul (4.70-6.10); RED CELL DISTRIBUTION WIDTH 21.5 % (11.5-14.5)
[2019-03-20 20:59] LABS: ADD MAN DIFF? YES; PATH REVIEW? YES
[2019-03-20 21:00] LABS: PLATELET COUNT 89 10^3/UL (140-415)
[2019-03-20 21:12] LABS: ALANINE AMINOTRANSFERASE 37 IU/L (13-69); ALBUMIN 3.4 g/dl (3.3-4.9); ALBUMIN/GLOBULIN RATIO 0.91; ALKALINE PHOSPHATASE 226 IU/L (42-121); ANION GAP 13 (5-13); ASPARTATE AMINO TRANSFERASE 30 IU/L (15-46); BILIRUBIN,INDIRECT 0.2 mg/dl (0-1.1); BILIRUBIN,TOTAL 0.2 mg/dl (0.2-1.3); BLOOD UREA NITROGEN 46 mg/dl (7-20); CARBON DIOXIDE 17 mmol/L (21-31); CHLORIDE 113 mmol/L (97-110); Estimated GFR 22 mL/min (>60); GLUCOSE 298 mg/dl (70-220); POTASSIUM 5.1 mmol/L (3.5-5.1); SODIUM 143 mmol/L (135-144); TOTAL PROTEIN 7.1 g/dl (6.1-8.1)
[2019-03-20] MEDS: CEFEPIME 2GM/50 ML (PMX) 50 ML IVPB (21:20)
[2019-03-20 21:23] LABS: B-TYPE NATRIURETIC PEPTIDE 6420 PG/ML (0-125); TROPONIN-I < 0.012 ng/ml (0.000-0.120)
[2019-03-20 21:30] LABS: FREE T4 (FREE THYROXINE) 1.22 ng/dl (0.78-2.44)
[2019-03-20] MEDS: VANCOMYCIN 1 GM (PMX) 250 ML IVPB (21:49)
[2019-03-20] MEDS ORDERED: ACETAMINOPHEN 325 MG TAB PO (22:30)
[2019-03-20] MEDS ORDERED: ONDANSETRON 4 MG INJ IV (22:30)
[2019-03-20 22:43] LABS: ANISOCYTOSIS 1+ (0-0); BAND NEUTROPHILS % (M) 4 % (0-4); BURR CELLS 2+ (0-0); LYMPHOCYTES #M 0.2 10^3/ul (0.8-2.9); LYMPHOCYTES % (M) 1 % (15-51); MICROCYTOSIS 1+ (0-0); PLATELET ESTIMATE DECREASED; POIKILOCYTOSIS 2+ (0-0); REACTIVE LYMPHOCYTES #M 0.2 10^3/ul (0.0-0.0); REACTIVE LYMPHOCYTES% (M) 1 % (0-0); SEGMENTED NEUTROPHILS (M) % 94 % (39-77); SMUDGE%M 13 % (0-0)
[2019-03-20 22:56] LABS: AADO2 Arterial 340.1 mmHg (7.0-24.0); Allen Test ACCEPTAB; Arterial Base Excess -10.7 mmol/L (-3.0-3); Arterial Blood Gas Oxygen Sat 95.5 mmHG (95.0-98.0); Arterial COHb 1.2 % (0.0-3.0); Arterial Fraction of Oxyhgb 94.1 % (93.0-99.0); Arterial HCO3 17.7 mmol/L (22.0-26.0); Arterial MetHb 0.3 % (0.0-1.5); MODE SIMPLE MASK; Site Left Radial
[2019-03-20] MEDS: DEXMEDETOMIDINE IN DEXTROSE 5% 50 ML IV (23:58)
[2019-03-21] MEDS ORDERED: NACL 0.9% 3 ML SYG IV
[2019-03-21] MEDS ORDERED: VANCOMYCIN IV PER PHARMACY XX
[2019-03-21] MEDS: FUROSEMIDE 40 MG INJ IV ×4 (00:12→19:24)
[2019-03-21 00:26] LABS: CREATINE KINASE 48 IU/L (23-200)
[2019-03-21 00:27] LABS: LACTIC ACID 1.7 mmol/L (0.5-2.0)
[2019-03-21] MEDS: ACCU-CHEK XX ×8 (00:37→18:02)
[2019-03-21 00:39] LABS: TROPONIN-I < 0.012 ng/ml (0.000-0.120)
[2019-03-21 00:41] LABS: CK-MB 6.71 ng/ml (0.0-2.4)
[2019-03-21] MEDS: FENTAnyl 50 MCG/ML VIAL IV (00:44)
[2019-03-21] MEDS ORDERED: GLUCAGON 1 MG INJ IM (01:00)
[2019-03-21] MEDS ORDERED: GLUCOSE GEL 15 GRAM TUBE PO ×2 (01:00)
[2019-03-21] MEDS ORDERED: GLUCOSE GEL 15 GRAM TUBE BUCCAL (01:00)
[2019-03-21 01:04] LABS: AADO2 Arterial 347.6 mmHg (7.0-24.0); Allen Test ACCEPTAB; Arterial Base Excess -9.3 mmol/L (-3.0-3); Arterial Blood Gas Oxygen Sat 99.7 mmHG (95.0-98.0); Arterial Fraction of Oxyhgb 98.4 % (93.0-99.0); Arterial HCO3 16.2 mmol/L (22.0-26.0); Arterial MetHb 0.3 % (0.0-1.5); Arterial pCO2 33.7 mmhg (35-45); MODE VENT - AC; Site Left Radial
[2019-03-21 01:36] LABS: FREE T3 2.86 pg/ml (2.77-5.27)
[2019-03-21] MEDS: ATROPINE 0.4 MG INJ IV (02:16)
[2019-03-21] MEDS: GLUCAGON 1 MG INJ IV (02:27)
[2019-03-21 04:08] LABS: LACTIC ACID 2.7 mmol/L (0.5-2.0)
[2019-03-21 05:41] LABS: ADD MAN DIFF? NO
[2019-03-21 05:48] LABS: WHITE BLOOD COUNT 16.6 10^3/ul (4.8-10.8)
[2019-03-21 05:48] LABS: ABNORMAL IP MESSAGE 1; BASOPHILS % 0.1 % (0.0-2.0); EOSINOPHILS % 0.1 % (0.0-7.0); HEMATOCRIT 23.8 % (42.0-52.0); LYMPHOCYTES # 0.2 10^3/ul (0.8-2.9); LYMPHOCYTES % 1.2 % (15.0-51.0); MEAN CORPUSCULAR HGB CONC 29.4 g/dl (32.0-37.0); MEAN CORPUSCULAR VOLUME 74.8 fl (82.0-101.0); MONOCYTE # 0.6 10^3/ul (0.3-0.9); MONOCYTES % 3.4 % (0.0-11.0); NEUTROPHIL # 15.8 10^3/ul (1.6-7.5); NEUTROPHILS % 94.8 % (39.0-77.0); NUCLEATED RED BLOOD CELLS # 0.1 10^3/ul (0.0-0.0); NUCLEATED RED BLOOD CELLS% 0.4 /100WBC (0.0-0.0); PLATELET COUNT 64 10^3/UL (140-415); POSITIVE DIFF @See below; RED BLOOD COUNT 3.18 10^6/ul (4.70-6.10); RED CELL DISTRIBUTION WIDTH 21.2 % (11.5-14.5)
[2019-03-21 06:04] LABS: CREATINE KINASE 41 IU/L (23-200)
[2019-03-21 06:15] LABS: ALANINE AMINOTRANSFERASE 44 IU/L (13-69); ALBUMIN 2.6 g/dl (3.3-4.9); ALBUMIN/GLOBULIN RATIO 0.83; ALKALINE PHOSPHATASE 187 IU/L (42-121); ANION GAP 12 (5-13); ASPARTATE AMINO TRANSFERASE 26 IU/L (15-46); BILIRUBIN,INDIRECT 0.2 mg/dl (0-1.1); BILIRUBIN,TOTAL 0.2 mg/dl (0.2-1.3); BLOOD UREA NITROGEN 50 mg/dl (7-20); CALCIUM 8.9 mg/dl (8.4-10.2); CARBON DIOXIDE 16 mmol/L (21-31); CHLORIDE 116 mmol/L (97-110); CREATININE 2.71 mg/dl (0.61-1.24); Estimated GFR 24 mL/min (>60); GLUCOSE 185 mg/dl (70-220); POTASSIUM 4.5 mmol/L (3.5-5.1); SODIUM 144 mmol/L (135-144); TOTAL PROTEIN 5.7 g/dl (6.1-8.1)
[2019-03-21 06:17] LABS: CK INDEX 14.6; TROPONIN-I < 0.012 ng/ml (0.000-0.120)
[2019-03-21 07:03] LABS: HEMOGLOBIN A1C 5.7 % (0-5.9)
[2019-03-21] MEDS: HEPARIN 5,000 UNIT/1 ML VIAL SC ×2 (09:00→20:12)
[2019-03-21 09:08] LABS: IRON 19 ug/dl (35-150)
[2019-03-21] MEDS: LEVOTHYROXINE 100 MCG VIAL IV (09:08)
[2019-03-21] MEDS: INSULIN ASPART [NOVOLOG] 3 ML PEN SC ×4 (09:08→20:48)
[2019-03-21] MEDS: CEFEPIME 1GM/50 ML (PMX) 50 ML IVPB (09:09)
[2019-03-21] MEDS: LINAGLIPTIN 5 MG TABLET PO (09:09)
[2019-03-21] MEDS: HYDROCORTISONE 100 MG INJ IV ×3 (09:12→21:05)
[2019-03-21] MEDS: FAMOTIDINE 20 MG INJ IV (09:12)
[2019-03-21] MEDS: CYANOCOBALAMIN 1000 MCG INJ IM (09:12)
[2019-03-21 09:20] LABS: % IRON SATURATION 5 % SAT (22-52); TOTAL IRON BINDING CAPACITY 363 ug/dl (241-421)
[2019-03-21] MEDS: LIDOCAINE 1% (MPF) 5 ML VIAL SC (10:30)
[2019-03-21 12:58] LABS: ADD UMIC YES; UR ASCORBIC ACID NEGATIVE (NEGATIVE); UR BACTERIA FEW /HPF (NONE SEEN); UR BILIRUBIN (Dip) NEGATIVE (NEGATIVE); UR BLOOD (Dip) 3+ mg/dL (NEGATIVE); UR CLARITY CLOUDY (CLEAR); UR COLOR YELLOW (YELLOW); UR GLUCOSE (Dip) NEGATIVE (NEGATIVE); UR KETONES (Dip) NEGATIVE (NEGATIVE); UR LEUKOCYTE ESTERASE (Dip) 3+ Leu/ul (NEGATIVE); UR NITRITE (Dip) NEGATIVE (NEGATIVE); UR RBC > 182 /HPF (0-5); UR SPECIFIC GRAVITY (Dip) 1.008 (1.003-1.030); UR TOTAL PROTEIN (Dip) 2+ mg/dl (NEGATIVE); UR UROBILINOGEN (Dip) NEGATIVE (NEGATIVE); UR WBC > 182 /HPF (0-5)
[2019-03-21 13:24] LABS: CREATININE,URINE RANDOM 26.99 mg/dl (20-370)
[2019-03-21 13:24] LABS: SODIUM,URINE RANDOM 90 mmol/L (30-90)
[2019-03-21 14:28] LABS: IMMEDIATE SPIN CROSSMATCH 1 1
[2019-03-21] MEDS: SOD FERRIC GLUC COMPLX 125 MG in SOD CHLORIDE 0.9% 100 ML IVPB (17:03)
[2019-03-21] MEDS: DEXTROSE 50% 50 ML SYRINGE IV ×2 (17:24→20:38)
[2019-03-21] MEDS: METOLAZONE 5 MG TAB PO (19:24)
[2019-03-21] MEDS ORDERED: TAMSULOSIN (SR) 0.4 MG CAP PO (21:00)
[2019-03-22] MEDS: ACCU-CHEK XX ×8 (02:00→19:35)
[2019-03-22 05:27] LABS: ADD MAN DIFF? NO
[2019-03-22 05:37] LABS: WHITE BLOOD COUNT 21.8 10^3/ul (4.8-10.8)
[2019-03-22 05:37] LABS: ABNORMAL IP MESSAGE 1; BASOPHILS % 0.1 % (0.0-2.0); HEMATOCRIT 24.3 % (42.0-52.0); HEMOGLOBIN 7.8 g/dl (14.0-18.0); LYMPHOCYTES # 0.2 10^3/ul (0.8-2.9); LYMPHOCYTES % 0.8 % (15.0-51.0); MEAN CORPUSCULAR HEMOGLOBIN 23.7 pg (29.0-33.0); MEAN CORPUSCULAR HGB CONC 32.1 g/dl (32.0-37.0); MEAN CORPUSCULAR VOLUME 73.9 fl (82.0-101.0); MONOCYTE # 0.8 10^3/ul (0.3-0.9); MONOCYTES % 3.6 % (0.0-11.0); NEUTROPHIL # 20.7 10^3/ul (1.6-7.5); NEUTROPHILS % 94.9 % (39.0-77.0); NUCLEATED RED BLOOD CELLS # 0.1 10^3/ul (0.0-0.0); NUCLEATED RED BLOOD CELLS% 0.5 /100WBC (0.0-0.0); PLATELET COUNT 85 10^3/UL (140-415); POSITIVE DIFF @See below; RED BLOOD COUNT 3.29 10^6/ul (4.70-6.10); RED CELL DISTRIBUTION WIDTH 23.3 % (11.5-14.5)
[2019-03-22 06:15] LABS: ANION GAP 13 (5-13); BLOOD UREA NITROGEN 59 mg/dl (7-20); CALCIUM 8.7 mg/dl (8.4-10.2); CARBON DIOXIDE 19 mmol/L (21-31); CHLORIDE 112 mmol/L (97-110); Estimated GFR 19 mL/min (>60); GLUCOSE 189 mg/dl (70-220); MAGNESIUM 2.1 mg/dl (1.7-2.5); PHOSPHORUS 4.6 mg/dl (2.5-4.9); POTASSIUM 4.4 mmol/L (3.5-5.1); SODIUM 144 mmol/L (135-144)
[2019-03-22] MEDS: HYDROCORTISONE 100 MG INJ IV (07:04)
[2019-03-22 07:18] LABS: AADO2 Arterial 174.9 mmHg (7.0-24.0); Allen Test ACCEPTAB; Arterial Base Excess -4.7 mmol/L (-3.0-3); Arterial Blood Gas Oxygen Sat 94.4 mmHG (95.0-98.0); Arterial COHb 0.7 % (0.0-3.0); Arterial Fraction of Oxyhgb 93.4 % (93.0-99.0); Arterial HCO3 19.4 mmol/L (22.0-26.0); Arterial MetHb 0.4 % (0.0-1.5); Arterial pCO2 31.4 mmhg (35-45); MODE VENT - AC; Site Right Radial
[2019-03-22] MEDS: INSULIN ASPART [NOVOLOG] 3 ML PEN SC ×5 (07:35→20:43)
[2019-03-22] MEDS: DEXTROSE 50% 50 ML SYRINGE IV ×5 (08:09→18:33)
[2019-03-22] MEDS: LINAGLIPTIN 5 MG TABLET PO ×2 (09:00→09:27)
[2019-03-22] MEDS: HEPARIN 5,000 UNIT/1 ML VIAL SC ×2 (09:26→20:49)
[2019-03-22] MEDS: FAMOTIDINE 20 MG INJ IV (09:27)
[2019-03-22] MEDS: CEFEPIME 1GM/50 ML (PMX) 50 ML IVPB (09:27)
[2019-03-22] MEDS: LEVOTHYROXINE 100 MCG VIAL IV (09:27)
[2019-03-22 09:53] LABS: GLUCOSE 242 mg/dl (70-220)
[2019-03-22] MEDS: VANCOMYCIN 1 GM in 250 ML IVPB (10:31)
[2019-03-22] MEDS: SOD FERRIC GLUC COMPLX 125 MG in SOD CHLORIDE 0.9% 100 ML IVPB (13:04)
[2019-03-22] MEDS: DEXTROSE 10% 1,000 ML IV (13:06)
[2019-03-22] MEDS: MIDAZOLAM (DRIP) 50 mg/50 mL 50 ML IV (14:20)
[2019-03-22] MEDS: FUROSEMIDE 40 MG INJ IV (18:29)
[2019-03-23] MEDS: ACCU-CHEK XX ×5 (01:34→11:35)
[2019-03-23] MEDS: DEXTROSE 50% 50 ML SYRINGE IV (01:40)
[2019-03-23 05:15] LABS: ADD MAN DIFF? NO
[2019-03-23 05:20] LABS: ABNORMAL IP MESSAGE 1; BASOPHILS % 0.2 % (0.0-2.0); EOSINOPHILS # 0.1 10^3/ul (0.0-0.5); EOSINOPHILS % 1.1 % (0.0-7.0); HEMATOCRIT 22.9 % (42.0-52.0); HEMOGLOBIN 7.2 g/dl (14.0-18.0); LYMPHOCYTES # 0.3 10^3/ul (0.8-2.9); MEAN CORPUSCULAR HEMOGLOBIN 23.5 pg (29.0-33.0); MEAN CORPUSCULAR HGB CONC 31.4 g/dl (32.0-37.0); MEAN CORPUSCULAR VOLUME 74.8 fl (82.0-101.0); MONOCYTE # 1.1 10^3/ul (0.3-0.9); MONOCYTES % 9.6 % (0.0-11.0); NEUTROPHIL # 9.6 10^3/ul (1.6-7.5); NEUTROPHILS % 85.3 % (39.0-77.0); NUCLEATED RED BLOOD CELLS # 0.1 10^3/ul (0.0-0.0); NUCLEATED RED BLOOD CELLS% 0.8 /100WBC (0.0-0.0); PLATELET COUNT 50 10^3/UL (140-415); POSITIVE DIFF @See below; RED BLOOD COUNT 3.06 10^6/ul (4.70-6.10); RED CELL DISTRIBUTION WIDTH 23.8 % (11.5-14.5)
[2019-03-23 05:20] LABS: WHITE BLOOD COUNT 11.3 10^3/ul (4.8-10.8)
[2019-03-23] MEDS: FUROSEMIDE 40 MG INJ IV ×2 (05:27→17:55)
[2019-03-23 05:35] LABS: ANION GAP 13 (5-13); BLOOD UREA NITROGEN 66 mg/dl (7-20); CALCIUM 8.8 mg/dl (8.4-10.2); CARBON DIOXIDE 21 mmol/L (21-31); CHLORIDE 112 mmol/L (97-110); CREATININE 4.05 mg/dl (0.61-1.24); Estimated GFR 15 mL/min (>60); GLUCOSE 167 mg/dl (70-220); MAGNESIUM 2.1 mg/dl (1.7-2.5); PHOSPHORUS 5.1 mg/dl (2.5-4.9); POTASSIUM 3.7 mmol/L (3.5-5.1); SODIUM 146 mmol/L (135-144)
[2019-03-23] MEDS: INSULIN ASPART [NOVOLOG] 3 ML PEN SC ×5 (07:35→21:27)
[2019-03-23 07:55] LABS: AADO2 Arterial 113.9 mmHg (7.0-24.0); Allen Test ACCEPTAB; Arterial Base Excess -4.9 mmol/L (-3.0-3); Arterial COHb 0.6 % (0.0-3.0); Arterial Fraction of Oxyhgb 91.2 % (93.0-99.0); Arterial MetHb 0.3 % (0.0-1.5); Arterial pCO2 30.6 mmhg (35-45); MODE VENT - AC; Site Right Radial
[2019-03-23] MEDS: DEXTROSE 10% 1,000 ML IV (08:36)
[2019-03-23] MEDS: FAMOTIDINE 20 MG INJ IV (08:36)
[2019-03-23] MEDS: CEFEPIME 1GM/50 ML (PMX) 50 ML IVPB (08:38)
[2019-03-23] MEDS: LEVOTHYROXINE 100 MCG VIAL IV (08:41)
[2019-03-23] MEDS: HEPARIN 5,000 UNIT/1 ML VIAL SC ×2 (08:41→21:07)
[2019-03-23] MEDS: LINAGLIPTIN 5 MG TABLET PO (08:42)
[2019-03-23] MEDS: EPOETIN ALFA-EPBX (NON-ESRD 10,000 UNIT/ML VIAL SC (08:53)
[2019-03-23] MEDS: SOD FERRIC GLUC COMPLX 125 MG in SOD CHLORIDE 0.9% 100 ML IVPB (12:54)
[2019-03-23] MEDS: MIDAZOLAM (DRIP) 50 mg/50 mL 50 ML IV (14:17)
[2019-03-23 16:37] LABS: CREATININE, RANDOM URINE 29 mg/dL (20-320); MICROALBUMIN 36.8 mg/dL; MICROALBUMIN/CREATININE RATIO 1269 (<30)
[2019-03-23] MEDS ORDERED: AMPICILLIN 1 GM/NS (PMX) 50 ML IVPB (18:00)
[2019-03-24] MEDS: INSULIN ASPART [NOVOLOG] 3 ML PEN SC ×6 (00:46→20:48)
[2019-03-24 04:48] LABS: ADD MAN DIFF? NO
[2019-03-24 04:52] LABS: ABNORMAL IP MESSAGE 1; BASOPHILS % 0.2 % (0.0-2.0); EOSINOPHILS # 0.3 10^3/ul (0.0-0.5); EOSINOPHILS % 2.8 % (0.0-7.0); HEMOGLOBIN 7.6 g/dl (14.0-18.0); LYMPHOCYTES # 0.3 10^3/ul (0.8-2.9); LYMPHOCYTES % 2.8 % (15.0-51.0); MEAN CORPUSCULAR HEMOGLOBIN 23.4 pg (29.0-33.0); MEAN CORPUSCULAR HGB CONC 31.7 g/dl (32.0-37.0); MEAN CORPUSCULAR VOLUME 73.8 fl (82.0-101.0); MONOCYTES % 8.3 % (0.0-11.0); NEUTROPHIL # 10.3 10^3/ul (1.6-7.5); NEUTROPHILS % 84.5 % (39.0-77.0); NUCLEATED RED BLOOD CELLS # 0.2 10^3/ul (0.0-0.0); NUCLEATED RED BLOOD CELLS% 1.3 /100WBC (0.0-0.0); PLATELET COUNT 66 10^3/UL (140-415); POSITIVE DIFF @See below; RED BLOOD COUNT 3.25 10^6/ul (4.70-6.10); RED CELL DISTRIBUTION WIDTH 23.5 % (11.5-14.5)
[2019-03-24 04:52] LABS: WHITE BLOOD COUNT 12.2 10^3/ul (4.8-10.8)
[2019-03-24 05:09] LABS: ANION GAP 12 (5-13); BLOOD UREA NITROGEN 71 mg/dl (7-20); CARBON DIOXIDE 23 mmol/L (21-31); CHLORIDE 107 mmol/L (97-110); Estimated GFR 14 mL/min (>60); GLUCOSE 148 mg/dl (70-220); MAGNESIUM 2.1 mg/dl (1.7-2.5); PHOSPHORUS 5.2 mg/dl (2.5-4.9); POTASSIUM 3.6 mmol/L (3.5-5.1); SODIUM 142 mmol/L (135-144)
[2019-03-24 05:12] LABS: VANCOMYCIN,TROUGH 15.8 ug/ml (10.0-20.0)
[2019-03-24] MEDS: DEXTROSE 10% 1,000 ML IV (05:15)
[2019-03-24] MEDS: LEVOTHYROXINE 25 MCG TAB NGT (05:16)
[2019-03-24] MEDS: FUROSEMIDE 40 MG INJ IV ×2 (05:16→17:49)
[2019-03-24 07:19] LABS: AADO2 Arterial 94.8 mmHg (7.0-24.0); Allen Test ACCEPTAB; Arterial Base Excess -1.5 mmol/L (-3.0-3); Arterial Blood Gas Oxygen Sat 95.7 mmHG (95.0-98.0); Arterial COHb 0.3 % (0.0-3.0); Arterial Fraction of Oxyhgb 95.3 % (93.0-99.0); Arterial HCO3 21.9 mmol/L (22.0-26.0); Arterial MetHb 0.1 % (0.0-1.5); Arterial pCO2 31.7 mmhg (35-45); MODE VENT - AC; Site Right Radial
[2019-03-24] MEDS: LINAGLIPTIN 5 MG TABLET PO (09:07)
[2019-03-24] MEDS: CEFEPIME 1GM/50 ML (PMX) 50 ML IVPB (09:07)
[2019-03-24] MEDS: FAMOTIDINE 20 MG TAB GTB (09:07)
[2019-03-24] MEDS: HEPARIN 5,000 UNIT/1 ML VIAL SC ×2 (09:11→20:56)
[2019-03-24] MEDS: VANCOMYCIN 1 GM 250 ML IVPB (12:03)
[2019-03-24] MEDS: SOD FERRIC GLUC COMPLX 125 MG in SOD CHLORIDE 0.9% 100 ML IVPB (14:26)
[2019-03-24] MEDS: BALSAM PERU/CASTOR OIL 60 GM TUBE TOP (20:45)
[2019-03-25] MEDS: INSULIN ASPART [NOVOLOG] 3 ML PEN SC ×6 (00:54→21:06)
[2019-03-25 04:11] LABS: ADD MAN DIFF? NO
[2019-03-25 04:16] LABS: ABNORMAL IP MESSAGE 1; BASOPHILS % 0.1 % (0.0-2.0); EOSINOPHILS # 0.2 10^3/ul (0.0-0.5); EOSINOPHILS % 1.1 % (0.0-7.0); HEMATOCRIT 24.1 % (42.0-52.0); HEMOGLOBIN 7.8 g/dl (14.0-18.0); LYMPHOCYTES # 0.3 10^3/ul (0.8-2.9); LYMPHOCYTES % 1.8 % (15.0-51.0); MEAN CORPUSCULAR HEMOGLOBIN 23.7 pg (29.0-33.0); MEAN CORPUSCULAR HGB CONC 32.4 g/dl (32.0-37.0); MEAN CORPUSCULAR VOLUME 73.3 fl (82.0-101.0); MONOCYTE # 1.6 10^3/ul (0.3-0.9); MONOCYTES % 9.6 % (0.0-11.0); NEUTROPHIL # 14.1 10^3/ul (1.6-7.5); NEUTROPHILS % 85.9 % (39.0-77.0); NUCLEATED RED BLOOD CELLS # 0.1 10^3/ul (0.0-0.0); NUCLEATED RED BLOOD CELLS% 0.7 /100WBC (0.0-0.0); PLATELET COUNT 97 10^3/UL (140-415); POSITIVE DIFF @See below; RED BLOOD COUNT 3.29 10^6/ul (4.70-6.10); RED CELL DISTRIBUTION WIDTH 23.3 % (11.5-14.5)
[2019-03-25 04:16] LABS: WHITE BLOOD COUNT 16.4 10^3/ul (4.8-10.8)
[2019-03-25] MEDS: DEXTROSE 10% 1,000 ML IV ×2 (04:30→08:51)
[2019-03-25 04:53] LABS: ANION GAP 12 (5-13); BLOOD UREA NITROGEN 82 mg/dl (7-20); CALCIUM 8.8 mg/dl (8.4-10.2); CARBON DIOXIDE 26 mmol/L (21-31); CHLORIDE 104 mmol/L (97-110); CREATININE 4.41 mg/dl (0.61-1.24); Estimated GFR 14 mL/min (>60); GLUCOSE 135 mg/dl (70-220); MAGNESIUM 2.2 mg/dl (1.7-2.5); PHOSPHORUS 4.7 mg/dl (2.5-4.9); POTASSIUM 3.4 mmol/L (3.5-5.1); SODIUM 142 mmol/L (135-144)
[2019-03-25] MEDS: FUROSEMIDE 40 MG INJ IV (05:45)
[2019-03-25] MEDS: LEVOTHYROXINE 25 MCG TAB NGT (05:45)
[2019-03-25] MEDS: CEFEPIME 1GM/50 ML (PMX) 50 ML IVPB (08:53)
[2019-03-25] MEDS: FAMOTIDINE 20 MG TAB GTB (08:56)
[2019-03-25] MEDS: LINAGLIPTIN 5 MG TABLET PO (08:56)
[2019-03-25] MEDS: HEPARIN 5,000 UNIT/1 ML VIAL SC ×2 (09:00→21:06)
[2019-03-25] MEDS: BALSAM PERU/CASTOR OIL 60 GM TUBE TOP ×2 (09:06→21:06)
[2019-03-26] MEDS: INSULIN ASPART [NOVOLOG] 3 ML PEN SC ×6 (01:00→20:44)
[2019-03-26] MEDS: LEVOTHYROXINE 25 MCG TAB NGT (05:31)
[2019-03-26 05:40] LABS: ADD MAN DIFF? NO
[2019-03-26 05:42] LABS: WHITE BLOOD COUNT 13.6 10^3/ul (4.8-10.8)
[2019-03-26 05:42] LABS: ABNORMAL IP MESSAGE 1; BASOPHILS % 0.2 % (0.0-2.0); EOSINOPHILS # 0.3 10^3/ul (0.0-0.5); EOSINOPHILS % 1.9 % (0.0-7.0); HEMOGLOBIN 7.7 g/dl (14.0-18.0); LYMPHOCYTES # 0.7 10^3/ul (0.8-2.9); LYMPHOCYTES % 4.9 % (15.0-51.0); MEAN CORPUSCULAR HEMOGLOBIN 23.8 pg (29.0-33.0); MEAN CORPUSCULAR HGB CONC 32.1 g/dl (32.0-37.0); MEAN CORPUSCULAR VOLUME 74.3 fl (82.0-101.0); MONOCYTE # 1.5 10^3/ul (0.3-0.9); MONOCYTES % 10.8 % (0.0-11.0); NEUTROPHIL # 10.9 10^3/ul (1.6-7.5); NEUTROPHILS % 79.8 % (39.0-77.0); NUCLEATED RED BLOOD CELLS% 0.2 /100WBC (0.0-0.0); PLATELET COUNT 116 10^3/UL (140-415); POSITIVE DIFF @See below; RED BLOOD COUNT 3.23 10^6/ul (4.70-6.10); RED CELL DISTRIBUTION WIDTH 23.5 % (11.5-14.5)
[2019-03-26 06:15] LABS: ANION GAP 11 (5-13); BLOOD UREA NITROGEN 87 mg/dl (7-20); CALCIUM 9.2 mg/dl (8.4-10.2); CARBON DIOXIDE 32 mmol/L (21-31); CHLORIDE 102 mmol/L (97-110); CREATININE 4.46 mg/dl (0.61-1.24); Estimated GFR 14 mL/min (>60); GLUCOSE 150 mg/dl (70-220); MAGNESIUM 2.4 mg/dl (1.7-2.5); PHOSPHORUS 4.1 mg/dl (2.5-4.9); POTASSIUM 3.1 mmol/L (3.5-5.1); SODIUM 145 mmol/L (135-144)
[2019-03-26] MEDS: POTASSIUM CHLORIDE 20 MEQ POWDER FOR ORAL SOLN GTB (08:34)
[2019-03-26] MEDS: FAMOTIDINE 20 MG TAB GTB (08:34)
[2019-03-26] MEDS: LINAGLIPTIN 5 MG TABLET PO (08:35)
[2019-03-26] MEDS: CEFEPIME 1GM/50 ML (PMX) 50 ML IVPB (08:35)
[2019-03-26] MEDS: HEPARIN 5,000 UNIT/1 ML VIAL SC (08:42)
[2019-03-26] MEDS: BALSAM PERU/CASTOR OIL 60 GM TUBE TOP ×2 (08:44→20:44)
[2019-03-26 10:52] LABS: AADO2 Arterial 94.9 mmHg (7.0-24.0); Allen Test ACCEPTAB; Arterial Base Excess 5.1 mmol/L (-3.0-3); Arterial Blood Gas Oxygen Sat 95.2 mmHG (95.0-98.0); Arterial COHb 0.4 % (0.0-3.0); Arterial Fraction of Oxyhgb 94.5 % (93.0-99.0); Arterial HCO3 28.1 mmol/L (22.0-26.0); Arterial MetHb 0.3 % (0.0-1.5); Arterial pCO2 35.2 mmhg (35-45); Blood Gas PS 10; MODE VENT - CPAP; Site Right Radial
[2019-03-27] MEDS: INSULIN ASPART [NOVOLOG] 3 ML PEN SC ×5 (01:00→20:43)
[2019-03-27] MEDS: LEVOTHYROXINE 25 MCG TAB NGT (03:32)
[2019-03-27 06:00] LABS: ADD MAN DIFF? NO
[2019-03-27 06:07] LABS: ABNORMAL IP MESSAGE 1; BASOPHIL # 0.1 10^3/ul (0.0-0.1); BASOPHILS % 0.3 % (0.0-2.0); EOSINOPHILS # 0.1 10^3/ul (0.0-0.5); EOSINOPHILS % 0.8 % (0.0-7.0); HEMATOCRIT 25.5 % (42.0-52.0); LYMPHOCYTES # 0.6 10^3/ul (0.8-2.9); LYMPHOCYTES % 3.9 % (15.0-51.0); MEAN CORPUSCULAR HEMOGLOBIN 24.1 pg (29.0-33.0); MEAN CORPUSCULAR HGB CONC 31.4 g/dl (32.0-37.0); MEAN CORPUSCULAR VOLUME 76.8 fl (82.0-101.0); MEAN PLATELET VOLUME 11.5 fl (7.4-10.4); MONOCYTES % 6.8 % (0.0-11.0); NEUTROPHIL # 12.5 10^3/ul (1.6-7.5); NEUTROPHILS % 86.6 % (39.0-77.0); PLATELET COUNT 132 10^3/UL (140-415); POSITIVE DIFF @See below; RED BLOOD COUNT 3.32 10^6/ul (4.70-6.10)
[2019-03-27 06:07] LABS: WHITE BLOOD COUNT 14.5 10^3/ul (4.8-10.8)
[2019-03-27 06:32] LABS: ANION GAP 11 (5-13); BLOOD UREA NITROGEN 88 mg/dl (7-20); CARBON DIOXIDE 32 mmol/L (21-31); CHLORIDE 107 mmol/L (97-110); CREATININE 4.61 mg/dl (0.61-1.24); Estimated GFR 13 mL/min (>60); GLUCOSE 100 mg/dl (70-220); MAGNESIUM 2.5 mg/dl (1.7-2.5); PHOSPHORUS 5.4 mg/dl (2.5-4.9); POTASSIUM 3.7 mmol/L (3.5-5.1); SODIUM 150 mmol/L (135-144)
[2019-03-27 06:35] LABS: VANCOMYCIN,RANDOM 15.9 ug/ml
[2019-03-27] MEDS: DEXTROSE 5% 1,000 ML IV ×2 (08:10→21:20)
[2019-03-27] MEDS: CEFEPIME 1GM/50 ML (PMX) 50 ML IVPB (09:18)
[2019-03-27 09:49] LABS: SODIUM,URINE RANDOM 119 mmol/L (30-90)
[2019-03-27 09:49] LABS: CREATININE,URINE RANDOM 36.29 mg/dl (20-370)
[2019-03-27 09:56] LABS: ADD UMIC YES; UR ASCORBIC ACID NEGATIVE (NEGATIVE); UR BACTERIA FEW /HPF (NONE SEEN); UR BILIRUBIN (Dip) NEGATIVE (NEGATIVE); UR BLOOD (Dip) 1+ mg/dL (NEGATIVE); UR CLARITY SLIGHTLY CLOUDY (CLEAR); UR COLOR YELLOW (YELLOW); UR GLUCOSE (Dip) NEGATIVE (NEGATIVE); UR KETONES (Dip) NEGATIVE (NEGATIVE); UR LEUKOCYTE ESTERASE (Dip) 2+ Leu/ul (NEGATIVE); UR NITRITE (Dip) NEGATIVE (NEGATIVE); UR RBC 1 /HPF (0-5); UR SPECIFIC GRAVITY (Dip) 1.011 (1.003-1.030); UR SQUAMOUS EPITHELIAL CELL FEW /HPF (FEW); UR TOTAL PROTEIN (Dip) 2+ mg/dl (NEGATIVE); UR UROBILINOGEN (Dip) NEGATIVE (NEGATIVE); UR WBC 7 /HPF (0-5)
[2019-03-27] MEDS: FAMOTIDINE 20 MG TAB GTB (11:50)
[2019-03-27] MEDS: LINAGLIPTIN 5 MG TABLET PO (11:50)
[2019-03-27] MEDS: BALSAM PERU/CASTOR OIL 60 GM TUBE TOP ×2 (11:50→20:43)
[2019-03-27 12:05] LABS: OSMOLALITY,URINE 382 mOsm/kg (250-1200)
[2019-03-27] MEDS: VANCOMYCIN 1 GM 250 ML IVPB (14:26)
[2019-03-27 15:25] LABS: ANION GAP 10 (5-13); BLOOD UREA NITROGEN 90 mg/dl (7-20); CALCIUM 8.8 mg/dl (8.4-10.2); CARBON DIOXIDE 31 mmol/L (21-31); CHLORIDE 106 mmol/L (97-110); CREATININE 4.18 mg/dl (0.61-1.24); Estimated GFR 15 mL/min (>60); GLUCOSE 166 mg/dl (70-220); POTASSIUM 3.6 mmol/L (3.5-5.1); SODIUM 147 mmol/L (135-144)
[2019-03-27] MEDS: METOPROLOL 50 MG TAB PO (20:33)
[2019-03-28] MEDS: DEXTROSE 5% 1,000 ML IV ×2 (01:27→21:11)
[2019-03-28] MEDS: ACCU-CHEK XX (02:49)
[2019-03-28] MEDS: LEVOTHYROXINE 25 MCG TAB NGT (05:43)
[2019-03-28] MEDS: METOPROLOL 50 MG TAB PO ×2 (06:04→20:50)
[2019-03-28 06:19] LABS: ADD MAN DIFF? NO
[2019-03-28 06:27] LABS: WHITE BLOOD COUNT 14.6 10^3/ul (4.8-10.8)
[2019-03-28 06:27] LABS: ABNORMAL IP MESSAGE 1; BASOPHILS % 0.2 % (0.0-2.0); EOSINOPHILS # 0.1 10^3/ul (0.0-0.5); HEMATOCRIT 27.2 % (42.0-52.0); HEMOGLOBIN 8.4 g/dl (14.0-18.0); LYMPHOCYTES # 0.6 10^3/ul (0.8-2.9); LYMPHOCYTES % 3.9 % (15.0-51.0); MEAN CORPUSCULAR HEMOGLOBIN 23.6 pg (29.0-33.0); MEAN CORPUSCULAR HGB CONC 30.9 g/dl (32.0-37.0); MEAN CORPUSCULAR VOLUME 76.4 fl (82.0-101.0); MONOCYTES % 6.9 % (0.0-11.0); NEUTROPHIL # 12.7 10^3/ul (1.6-7.5); NEUTROPHILS % 86.9 % (39.0-77.0); PLATELET COUNT 190 10^3/UL (140-415); POSITIVE DIFF @See below; RED BLOOD COUNT 3.56 10^6/ul (4.70-6.10); RED CELL DISTRIBUTION WIDTH 23.9 % (11.5-14.5)
[2019-03-28 06:51] LABS: ANION GAP 12 (5-13); BLOOD UREA NITROGEN 79 mg/dl (7-20); CALCIUM 8.7 mg/dl (8.4-10.2); CARBON DIOXIDE 30 mmol/L (21-31); CHLORIDE 104 mmol/L (97-110); CREATININE 4.23 mg/dl (0.61-1.24); Estimated GFR 14 mL/min (>60); GLUCOSE 207 mg/dl (70-220); POTASSIUM 3.6 mmol/L (3.5-5.1); SODIUM 146 mmol/L (135-144)
[2019-03-28] MEDS: INSULIN ASPART [NOVOLOG] 3 ML PEN SC ×4 (08:04→20:55)
[2019-03-28] MEDS: LINAGLIPTIN 5 MG TABLET PO (08:44)
[2019-03-28] MEDS: FAMOTIDINE 20 MG TAB GTB (08:44)
[2019-03-28] MEDS: BALSAM PERU/CASTOR OIL 60 GM TUBE TOP ×2 (08:45→21:11)
[2019-03-28 15:22] LABS: CREATININE, RANDOM URINE 39 mg/dL (20-320); MICROALBUMIN 80.1 mg/dL; MICROALBUMIN/CREATININE RATIO 2054 (<30)
[2019-03-28] MEDS: DOXAZOSIN 1 MG TAB PO (19:03)
[2019-03-28] MEDS: DOXAZOSIN 2 MG TAB PO (20:50)
[2019-03-29] MEDS: ACCU-CHEK XX (03:14)
[2019-03-29] MEDS: LEVOTHYROXINE 25 MCG TAB NGT (05:43)
[2019-03-29 06:07] LABS: ADD MAN DIFF? NO
[2019-03-29 06:09] LABS: ABNORMAL IP MESSAGE 1; BASOPHILS % 0.3 % (0.0-2.0); EOSINOPHILS # 0.2 10^3/ul (0.0-0.5); EOSINOPHILS % 1.4 % (0.0-7.0); LYMPHOCYTES # 0.6 10^3/ul (0.8-2.9); LYMPHOCYTES % 5.4 % (15.0-51.0); MEAN CORPUSCULAR HEMOGLOBIN 23.9 pg (29.0-33.0); MEAN CORPUSCULAR HGB CONC 30.8 g/dl (32.0-37.0); MEAN CORPUSCULAR VOLUME 77.6 fl (82.0-101.0); MEAN PLATELET VOLUME 10.6 fl (7.4-10.4); MONOCYTE # 0.8 10^3/ul (0.3-0.9); MONOCYTES % 6.9 % (0.0-11.0); NEUTROPHIL # 9.4 10^3/ul (1.6-7.5); NEUTROPHILS % 84.7 % (39.0-77.0); PLATELET COUNT 218 10^3/UL (140-415); POSITIVE DIFF @See below; RED BLOOD COUNT 3.35 10^6/ul (4.70-6.10); RED CELL DISTRIBUTION WIDTH 23.7 % (11.5-14.5)
[2019-03-29 06:09] LABS: WHITE BLOOD COUNT 11.1 10^3/ul (4.8-10.8)
[2019-03-29 06:41] LABS: ANION GAP 10 (5-13); BLOOD UREA NITROGEN 74 mg/dl (7-20); CALCIUM 8.5 mg/dl (8.4-10.2); CARBON DIOXIDE 29 mmol/L (21-31); CHLORIDE 102 mmol/L (97-110); CREATININE 3.78 mg/dl (0.61-1.24); Estimated GFR 16 mL/min (>60); GLUCOSE 209 mg/dl (70-220); PHOSPHORUS 4.6 mg/dl (2.5-4.9); POTASSIUM 3.8 mmol/L (3.5-5.1); SODIUM 141 mmol/L (135-144)
[2019-03-29] MEDS: LINAGLIPTIN 5 MG TABLET PO (09:05)
[2019-03-29] MEDS: FAMOTIDINE 20 MG TAB GTB (09:06)
[2019-03-29] MEDS: METOPROLOL 50 MG TAB PO ×2 (09:06→21:06)
[2019-03-29] MEDS: BALSAM PERU/CASTOR OIL 60 GM TUBE TOP ×2 (09:07→21:13)
[2019-03-29] MEDS: INSULIN ASPART [NOVOLOG] 3 ML PEN SC ×4 (09:19→21:00)
[2019-03-29] MEDS: DOXAZOSIN 2 MG TAB PO (21:05)
[2019-03-30] MEDS: ACCU-CHEK XX (01:03)
[2019-03-30] MEDS: LEVOTHYROXINE 25 MCG TAB NGT (05:25)
[2019-03-30 06:10] LABS: ADD MAN DIFF? NO
[2019-03-30 06:15] LABS: WHITE BLOOD COUNT 9.7 10^3/ul (4.8-10.8)
[2019-03-30 06:15] LABS: ABNORMAL IP MESSAGE 1; BASOPHILS % 0.2 % (0.0-2.0); EOSINOPHILS # 0.2 10^3/ul (0.0-0.5); EOSINOPHILS % 2.3 % (0.0-7.0); HEMATOCRIT 25.9 % (42.0-52.0); HEMOGLOBIN 7.9 g/dl (14.0-18.0); LYMPHOCYTES # 0.7 10^3/ul (0.8-2.9); LYMPHOCYTES % 6.7 % (15.0-51.0); MEAN CORPUSCULAR HEMOGLOBIN 23.4 pg (29.0-33.0); MEAN CORPUSCULAR HGB CONC 30.5 g/dl (32.0-37.0); MEAN CORPUSCULAR VOLUME 76.9 fl (82.0-101.0); MEAN PLATELET VOLUME 10.7 fl (7.4-10.4); MONOCYTE # 0.6 10^3/ul (0.3-0.9); MONOCYTES % 6.4 % (0.0-11.0); NEUTROPHIL # 8.1 10^3/ul (1.6-7.5); NEUTROPHILS % 83.5 % (39.0-77.0); PLATELET COUNT 290 10^3/UL (140-415); POSITIVE DIFF @See below; RED BLOOD COUNT 3.37 10^6/ul (4.70-6.10); RED CELL DISTRIBUTION WIDTH 23.9 % (11.5-14.5)
[2019-03-30 06:59] LABS: ANION GAP 10 (5-13); BLOOD UREA NITROGEN 74 mg/dl (7-20); CALCIUM 8.4 mg/dl (8.4-10.2); CARBON DIOXIDE 27 mmol/L (21-31); CHLORIDE 105 mmol/L (97-110); CREATININE 3.89 mg/dl (0.61-1.24); Estimated GFR 16 mL/min (>60); GLUCOSE 165 mg/dl (70-220); PHOSPHORUS 4.9 mg/dl (2.5-4.9); POTASSIUM 3.8 mmol/L (3.5-5.1); SODIUM 142 mmol/L (135-144)
[2019-03-30] MEDS: INSULIN ASPART [NOVOLOG] 3 ML PEN SC ×4 (08:54→21:00)
[2019-03-30] MEDS: FAMOTIDINE 20 MG TAB GTB (08:55)
[2019-03-30] MEDS: LINAGLIPTIN 5 MG TABLET PO (08:55)
[2019-03-30] MEDS: METOPROLOL 50 MG TAB PO ×2 (08:55→21:05)
[2019-03-30] MEDS: BALSAM PERU/CASTOR OIL 60 GM TUBE TOP ×2 (08:55→21:14)
[2019-03-30 12:25] LABS: AADO2 Arterial 41.4 mmHg (7.0-24.0); Allen Test ACCEPTAB; Arterial Base Excess 2.2 mmol/L (-3.0-3); Arterial Blood Gas Oxygen Sat 90.2 mmHG (95.0-98.0); Arterial COHb 0.3 % (0.0-3.0); Arterial Fraction of Oxyhgb 89.7 % (93.0-99.0); Arterial HCO3 26.3 mmol/L (22.0-26.0); Arterial MetHb 0.2 % (0.0-1.5); MODE ROOM AIR; Site Left Radial
[2019-03-30] MEDS: EPOETIN ALFA-EPBX (NON-ESRD 10,000 UNIT/ML VIAL SC (17:22)
[2019-03-30] MEDS: DOXAZOSIN 4 MG TAB PO (21:05)
[2019-03-31] MEDS: ACCU-CHEK XX (02:00)
[2019-03-31] MEDS: LEVOTHYROXINE 50 MCG TAB PO (06:00)
[2019-03-31] MEDS: CLONIDINE 0.1 MG/24 HR PATCH TRANSDERM (06:00)
[2019-03-31 06:29] LABS: ADD MAN DIFF? NO
[2019-03-31 06:35] LABS: ABNORMAL IP MESSAGE 1; BASOPHILS % 0.4 % (0.0-2.0); EOSINOPHILS # 0.2 10^3/ul (0.0-0.5); EOSINOPHILS % 2.4 % (0.0-7.0); HEMATOCRIT 26.9 % (42.0-52.0); HEMOGLOBIN 8.2 g/dl (14.0-18.0); LYMPHOCYTES # 0.6 10^3/ul (0.8-2.9); LYMPHOCYTES % 6.2 % (15.0-51.0); MEAN CORPUSCULAR HEMOGLOBIN 23.6 pg (29.0-33.0); MEAN CORPUSCULAR HGB CONC 30.5 g/dl (32.0-37.0); MEAN CORPUSCULAR VOLUME 77.5 fl (82.0-101.0); MEAN PLATELET VOLUME 10.7 fl (7.4-10.4); MONOCYTE # 0.5 10^3/ul (0.3-0.9); MONOCYTES % 5.7 % (0.0-11.0); NEUTROPHILS % 84.5 % (39.0-77.0); PLATELET COUNT 360 10^3/UL (140-415); POSITIVE DIFF @See below; RED BLOOD COUNT 3.47 10^6/ul (4.70-6.10)
[2019-03-31 06:35] LABS: WHITE BLOOD COUNT 9.5 10^3/ul (4.8-10.8)
[2019-03-31 06:59] LABS: ANION GAP 9 (5-13); BLOOD UREA NITROGEN 69 mg/dl (7-20); CALCIUM 8.4 mg/dl (8.4-10.2); CARBON DIOXIDE 26 mmol/L (21-31); CHLORIDE 110 mmol/L (97-110); CREATININE 3.66 mg/dl (0.61-1.24); Estimated GFR 17 mL/min (>60); GLUCOSE 158 mg/dl (70-220); MAGNESIUM 2.1 mg/dl (1.7-2.5); PHOSPHORUS 4.7 mg/dl (2.5-4.9); SODIUM 145 mmol/L (135-144)
[2019-03-31] MEDS: METOPROLOL 50 MG TAB PO ×2 (08:14→22:13)
[2019-03-31] MEDS: FAMOTIDINE 20 MG TAB GTB (08:14)
[2019-03-31] MEDS: LINAGLIPTIN 5 MG TABLET PO (08:15)
[2019-03-31] MEDS: BALSAM PERU/CASTOR OIL 60 GM TUBE TOP ×2 (08:16→21:00)
[2019-03-31] MEDS: INSULIN ASPART [NOVOLOG] 3 ML PEN SC ×4 (08:22→21:00)
[2019-03-31] MEDS ORDERED: DILTIAZEM 60 MG TAB PO (10:30)
[2019-03-31] MEDS: DILTIAZEM (CD) 120 MG CAP PO ×2 (10:58→22:12)
[2019-03-31] MEDS: VANCOMYCIN 1 GM 250 ML IVPB (14:13)
[2019-03-31] MEDS: DOXAZOSIN 4 MG TAB PO (22:13)
[2019-04-01] MEDS: ACCU-CHEK XX (02:00)
[2019-04-01] MEDS: LEVOTHYROXINE 50 MCG TAB PO (07:21)
[2019-04-01] MEDS: INSULIN ASPART [NOVOLOG] 3 ML PEN SC ×6 (08:09→20:14)
[2019-04-01] MEDS: FAMOTIDINE 20 MG TAB GTB (08:34)
[2019-04-01] MEDS: LINAGLIPTIN 5 MG TABLET PO (08:34)
[2019-04-01] MEDS: BALSAM PERU/CASTOR OIL 60 GM TUBE TOP ×2 (08:36→20:16)
[2019-04-01 08:57] LABS: ALANINE AMINOTRANSFERASE 70 IU/L (13-69); ALBUMIN/GLOBULIN RATIO 0.78; ALKALINE PHOSPHATASE 250 IU/L (42-121); ANION GAP 9 (5-13); ASPARTATE AMINO TRANSFERASE 115 IU/L (15-46); BILIRUBIN,INDIRECT 0.3 mg/dl (0-1.1); BILIRUBIN,TOTAL 0.3 mg/dl (0.2-1.3); BLOOD UREA NITROGEN 55 mg/dl (7-20); CALCIUM 8.2 mg/dl (8.4-10.2); CARBON DIOXIDE 24 mmol/L (21-31); CHLORIDE 111 mmol/L (97-110); CREATININE 3.03 mg/dl (0.61-1.24); Estimated GFR 21 mL/min (>60); GLUCOSE 172 mg/dl (70-220); POTASSIUM 4.3 mmol/L (3.5-5.1); SODIUM 144 mmol/L (135-144); TOTAL PROTEIN 6.8 g/dl (6.1-8.1)
[2019-04-01] MEDS: METOPROLOL 50 MG TAB PO ×2 (09:00→20:15)
[2019-04-01] MEDS: AMLODIPINE 5 MG TAB PO ×2 (10:28→20:15)
[2019-04-01] MEDS: EPOETIN ALFA-EPBX (NON-ESRD 10,000 UNIT/ML VIAL SC (17:32)
[2019-04-01] MEDS: DOXAZOSIN 4 MG TAB PO (20:16)
[2019-04-01] MEDS: INSULIN GLARGINE [LANTus] (100 UNITS/ML) SYG SC (20:59)
[2019-04-02] MEDS: ACCU-CHEK XX (01:09)
[2019-04-02] MEDS: LEVOTHYROXINE 50 MCG TAB PO (05:30)
[2019-04-02] MEDS: INSULIN ASPART [NOVOLOG] 3 ML PEN SC ×7 (07:50→20:55)
[2019-04-02 08:16] LABS: ADD MAN DIFF? NO
[2019-04-02] MEDS: LINAGLIPTIN 5 MG TABLET PO (08:16)
[2019-04-02] MEDS: FAMOTIDINE 20 MG TAB GTB (08:16)
[2019-04-02] MEDS: AMLODIPINE 5 MG TAB PO ×2 (08:16→20:56)
[2019-04-02] MEDS: BALSAM PERU/CASTOR OIL 60 GM TUBE TOP ×2 (08:17→20:57)
[2019-04-02] MEDS: CLONIDINE 0.3 MG/24 HR PATCH TRANSDERM (08:26)
[2019-04-02] MEDS: METOPROLOL 50 MG TAB PO ×2 (08:27→20:57)
[2019-04-02 08:30] LABS: WHITE BLOOD COUNT 8.2 10^3/ul (4.8-10.8)
[2019-04-02 08:30] LABS: ABNORMAL IP MESSAGE 1; BASOPHILS % 0.4 % (0.0-2.0); EOSINOPHILS # 0.2 10^3/ul (0.0-0.5); EOSINOPHILS % 2.1 % (0.0-7.0); HEMATOCRIT 27.7 % (42.0-52.0); HEMOGLOBIN 8.4 g/dl (14.0-18.0); LYMPHOCYTES # 0.6 10^3/ul (0.8-2.9); LYMPHOCYTES % 7.4 % (15.0-51.0); MEAN CORPUSCULAR HEMOGLOBIN 23.7 pg (29.0-33.0); MEAN CORPUSCULAR HGB CONC 30.3 g/dl (32.0-37.0); MEAN PLATELET VOLUME 11.2 fl (7.4-10.4); MONOCYTE # 0.6 10^3/ul (0.3-0.9); MONOCYTES % 7.1 % (0.0-11.0); NEUTROPHIL # 6.8 10^3/ul (1.6-7.5); NEUTROPHILS % 82.6 % (39.0-77.0); PLATELET COUNT 469 10^3/UL (140-415); POSITIVE DIFF @See below; RED BLOOD COUNT 3.55 10^6/ul (4.70-6.10); RED CELL DISTRIBUTION WIDTH 24.8 % (11.5-14.5)
[2019-04-02 08:57] LABS: ANION GAP 9 (5-13); BLOOD UREA NITROGEN 57 mg/dl (7-20); CALCIUM 8.5 mg/dl (8.4-10.2); CARBON DIOXIDE 24 mmol/L (21-31); CHLORIDE 113 mmol/L (97-110); CREATININE 3.09 mg/dl (0.61-1.24); Estimated GFR 21 mL/min (>60); GLUCOSE 118 mg/dl (70-220); PHOSPHORUS 4.3 mg/dl (2.5-4.9); POTASSIUM 4.2 mmol/L (3.5-5.1); SODIUM 146 mmol/L (135-144)
[2019-04-02] MEDS ORDERED: AMLODIPINE 5 MG TAB PO (09:00)
[2019-04-02] MEDS: DOXAZOSIN 4 MG TAB PO (20:57)
[2019-04-02] MEDS: INSULIN GLARGINE [LANTus] (100 UNITS/ML) SYG SC (21:16)
[2019-04-03] MEDS: ACCU-CHEK XX (01:02)
[2019-04-03] MEDS: LEVOTHYROXINE 50 MCG TAB PO (05:29)
[2019-04-03 06:44] LABS: ADD MAN DIFF? NO
[2019-04-03 06:50] LABS: ABNORMAL IP MESSAGE 1; BASOPHILS % 0.5 % (0.0-2.0); EOSINOPHILS # 0.2 10^3/ul (0.0-0.5); EOSINOPHILS % 2.1 % (0.0-7.0); HEMATOCRIT 29.2 % (42.0-52.0); HEMOGLOBIN 8.8 g/dl (14.0-18.0); LYMPHOCYTES # 0.6 10^3/ul (0.8-2.9); LYMPHOCYTES % 7.2 % (15.0-51.0); MEAN CORPUSCULAR HEMOGLOBIN 23.8 pg (29.0-33.0); MEAN CORPUSCULAR HGB CONC 30.1 g/dl (32.0-37.0); MEAN CORPUSCULAR VOLUME 78.9 fl (82.0-101.0); MONOCYTE # 0.7 10^3/ul (0.3-0.9); MONOCYTES % 8.1 % (0.0-11.0); NEUTROPHILS % 81.6 % (39.0-77.0); PLATELET COUNT 429 10^3/UL (140-415); POSITIVE DIFF @See below; RED CELL DISTRIBUTION WIDTH 25.1 % (11.5-14.5)
[2019-04-03 06:50] LABS: WHITE BLOOD COUNT 8.6 10^3/ul (4.8-10.8)
[2019-04-03 07:15] LABS: ANION GAP 8 (5-13); BLOOD UREA NITROGEN 53 mg/dl (7-20); CALCIUM 8.6 mg/dl (8.4-10.2); CARBON DIOXIDE 25 mmol/L (21-31); CHLORIDE 113 mmol/L (97-110); CREATININE 3.26 mg/dl (0.61-1.24); Estimated GFR 19 mL/min (>60); GLUCOSE 70 mg/dl (70-220); SODIUM 146 mmol/L (135-144)
[2019-04-03] MEDS: INSULIN ASPART [NOVOLOG] 3 ML PEN SC ×7 (07:55→21:00)
[2019-04-03] MEDS: LINAGLIPTIN 5 MG TABLET PO (08:05)
[2019-04-03] MEDS: FAMOTIDINE 20 MG TAB GTB (08:05)
[2019-04-03] MEDS: AMLODIPINE 5 MG TAB PO ×2 (08:06→21:18)
[2019-04-03] MEDS: METOPROLOL 50 MG TAB PO ×2 (08:06→21:19)
[2019-04-03] MEDS: BALSAM PERU/CASTOR OIL 60 GM TUBE TOP ×2 (08:06→21:19)
[2019-04-03] MEDS: DOXAZOSIN 4 MG TAB PO (21:18)
[2019-04-03] MEDS: INSULIN GLARGINE [LANTus] (100 UNITS/ML) SYG SC (22:09)
[2019-04-04] MEDS: ACCU-CHEK XX (01:18)
[2019-04-04] MEDS: LEVOTHYROXINE 50 MCG TAB PO (05:29)
[2019-04-04] MEDS: INSULIN ASPART [NOVOLOG] 3 ML PEN SC ×7 (07:55→20:42)
[2019-04-04 08:13] LABS: ADD MAN DIFF? NO
[2019-04-04 08:18] LABS: ABNORMAL IP MESSAGE 1; BASOPHILS % 0.5 % (0.0-2.0); EOSINOPHILS # 0.2 10^3/ul (0.0-0.5); HEMATOCRIT 31.3 % (42.0-52.0); HEMOGLOBIN 9.4 g/dl (14.0-18.0); LYMPHOCYTES # 0.6 10^3/ul (0.8-2.9); LYMPHOCYTES % 7.4 % (15.0-51.0); MEAN CORPUSCULAR HEMOGLOBIN 23.7 pg (29.0-33.0); MEAN PLATELET VOLUME 10.3 fl (7.4-10.4); MONOCYTE # 0.6 10^3/ul (0.3-0.9); NEUTROPHIL # 6.4 10^3/ul (1.6-7.5); NEUTROPHILS % 81.3 % (39.0-77.0); PLATELET COUNT 487 10^3/UL (140-415); POSITIVE DIFF @See below; RED BLOOD COUNT 3.96 10^6/ul (4.70-6.10); RED CELL DISTRIBUTION WIDTH 25.5 % (11.5-14.5)
[2019-04-04 08:18] LABS: WHITE BLOOD COUNT 7.9 10^3/ul (4.8-10.8)
[2019-04-04 08:35] LABS: ANION GAP 7 (5-13); BLOOD UREA NITROGEN 48 mg/dl (7-20); CALCIUM 8.8 mg/dl (8.4-10.2); CARBON DIOXIDE 24 mmol/L (21-31); CHLORIDE 114 mmol/L (97-110); CREATININE 3.42 mg/dl (0.61-1.24); Estimated GFR 18 mL/min (>60); GLUCOSE 58 mg/dl (70-220); MAGNESIUM 1.8 mg/dl (1.7-2.5); PHOSPHORUS 4.2 mg/dl (2.5-4.9); SODIUM 145 mmol/L (135-144)
[2019-04-04] MEDS: FAMOTIDINE 20 MG TAB GTB (09:01)
[2019-04-04] MEDS: METOPROLOL 50 MG TAB PO ×2 (09:02→20:34)
[2019-04-04] MEDS: LINAGLIPTIN 5 MG TABLET PO (09:02)
[2019-04-04] MEDS: AMLODIPINE 5 MG TAB PO ×2 (09:03→20:34)
[2019-04-04] MEDS: BALSAM PERU/CASTOR OIL 60 GM TUBE TOP ×2 (09:04→20:35)
[2019-04-04] MEDS: ZINC SULFATE 220 MG CAP PO (14:56)
[2019-04-04] MEDS: EPOETIN ALFA-EPBX (NON-ESRD 10,000 UNIT/ML VIAL SC (17:32)
[2019-04-04] MEDS: DOXAZOSIN 4 MG TAB PO (20:34)
[2019-04-04] MEDS: ISOSORBIDE MONONITRATE(SR)30 MG TAB PO (20:35)
[2019-04-04] MEDS: INSULIN GLARGINE [LANTus] (100 UNITS/ML) SYG SC (22:35)
[2019-04-05] MEDS: ACCU-CHEK XX (02:00)
[2019-04-05 06:19] LABS: ADD MAN DIFF? NO
[2019-04-05 06:21] LABS: ABNORMAL IP MESSAGE 1; BASOPHILS % 0.4 % (0.0-2.0); EOSINOPHILS # 0.2 10^3/ul (0.0-0.5); EOSINOPHILS % 2.1 % (0.0-7.0); HEMOGLOBIN 9.2 g/dl (14.0-18.0); LYMPHOCYTES # 0.6 10^3/ul (0.8-2.9); LYMPHOCYTES % 7.5 % (15.0-51.0); MEAN CORPUSCULAR HGB CONC 29.7 g/dl (32.0-37.0); MEAN CORPUSCULAR VOLUME 80.7 fl (82.0-101.0); MEAN PLATELET VOLUME 10.5 fl (7.4-10.4); MONOCYTE # 0.6 10^3/ul (0.3-0.9); MONOCYTES % 7.9 % (0.0-11.0); NEUTROPHIL # 6.1 10^3/ul (1.6-7.5); NEUTROPHILS % 81.3 % (39.0-77.0); PLATELET COUNT 469 10^3/UL (140-415); POSITIVE DIFF @See below; RED BLOOD COUNT 3.84 10^6/ul (4.70-6.10); RED CELL DISTRIBUTION WIDTH 25.6 % (11.5-14.5)
[2019-04-05 06:21] LABS: WHITE BLOOD COUNT 7.5 10^3/ul (4.8-10.8)
[2019-04-05] MEDS: LEVOTHYROXINE 50 MCG TAB PO (06:38)
[2019-04-05 07:06] LABS: ANION GAP 8 (5-13); BLOOD UREA NITROGEN 49 mg/dl (7-20); CALCIUM 8.6 mg/dl (8.4-10.2); CARBON DIOXIDE 23 mmol/L (21-31); CHLORIDE 115 mmol/L (97-110); Estimated GFR 19 mL/min (>60); GLUCOSE 81 mg/dl (70-220); MAGNESIUM 1.8 mg/dl (1.7-2.5); PHOSPHORUS 4.4 mg/dl (2.5-4.9); SODIUM 146 mmol/L (135-144)
[2019-04-05] MEDS: INSULIN ASPART [NOVOLOG] 3 ML PEN SC ×7 (07:41→20:46)
[2019-04-05] MEDS: LINAGLIPTIN 5 MG TABLET PO (08:29)
[2019-04-05] MEDS: ZINC SULFATE 220 MG CAP PO (08:29)
[2019-04-05] MEDS: METOPROLOL 50 MG TAB PO ×2 (08:29→20:36)
[2019-04-05] MEDS: FAMOTIDINE 20 MG TAB GTB (08:29)
[2019-04-05] MEDS: AMLODIPINE 5 MG TAB PO ×2 (08:30→20:36)
[2019-04-05] MEDS: ISOSORBIDE MONONITRATE(SR)30 MG TAB PO ×2 (08:30→20:35)
[2019-04-05] MEDS: BALSAM PERU/CASTOR OIL 60 GM TUBE TOP ×2 (08:31→21:00)
[2019-04-05] MEDS: DOXAZOSIN 4 MG TAB PO (20:36)
[2019-04-05] MEDS: INSULIN GLARGINE [LANTus] (100 UNITS/ML) SYG SC (20:46)
[2019-04-06] MEDS: ACCU-CHEK XX (01:47)
[2019-04-06] MEDS: LEVOTHYROXINE 50 MCG TAB PO (05:50)
[2019-04-06] MEDS: INSULIN ASPART [NOVOLOG] 3 ML PEN SC ×7 (07:55→21:23)
[2019-04-06 09:05] LABS: ANION GAP 9 (5-13); BLOOD UREA NITROGEN 52 mg/dl (7-20); CALCIUM 8.5 mg/dl (8.4-10.2); CARBON DIOXIDE 24 mmol/L (21-31); CHLORIDE 111 mmol/L (97-110); CREATININE 3.57 mg/dl (0.61-1.24); Estimated GFR 17 mL/min (>60); GLUCOSE 119 mg/dl (70-220); MAGNESIUM 1.7 mg/dl (1.7-2.5); PHOSPHORUS 4.7 mg/dl (2.5-4.9); POTASSIUM 4.1 mmol/L (3.5-5.1); SODIUM 144 mmol/L (135-144)
[2019-04-06] MEDS: LINAGLIPTIN 5 MG TABLET PO (09:29)
[2019-04-06] MEDS: ZINC SULFATE 220 MG CAP PO (09:29)
[2019-04-06] MEDS: ISOSORBIDE MONONITRATE(SR)30 MG TAB PO ×2 (11:39→21:07)
[2019-04-06] MEDS: AMLODIPINE 5 MG TAB PO ×2 (11:41→21:07)
[2019-04-06] MEDS: BALSAM PERU/CASTOR OIL 60 GM TUBE TOP ×2 (11:41→21:08)
[2019-04-06] MEDS: METOPROLOL 50 MG TAB PO ×2 (13:34→21:07)
[2019-04-06] MEDS: EPOETIN ALFA-EPBX (NON-ESRD 10,000 UNIT/ML VIAL SC (16:42)
[2019-04-06] MEDS: INSULIN GLARGINE [LANTus] (100 UNITS/ML) SYG SC (20:00)
[2019-04-06] MEDS: DOXAZOSIN 4 MG TAB PO (21:07)
[2019-04-07] MEDS: ACCU-CHEK XX (02:00)
[2019-04-07] MEDS: LEVOTHYROXINE 50 MCG TAB PO (05:38)
[2019-04-07 07:30] LABS: ANION GAP 9 (5-13); BLOOD UREA NITROGEN 49 mg/dl (7-20); CALCIUM 8.6 mg/dl (8.4-10.2); CARBON DIOXIDE 23 mmol/L (21-31); CHLORIDE 113 mmol/L (97-110); CREATININE 3.19 mg/dl (0.61-1.24); Estimated GFR 20 mL/min (>60); GLUCOSE 58 mg/dl (70-220); MAGNESIUM 1.8 mg/dl (1.7-2.5); PHOSPHORUS 4.7 mg/dl (2.5-4.9); SODIUM 145 mmol/L (135-144)
[2019-04-07] MEDS: INSULIN ASPART [NOVOLOG] 3 ML PEN SC ×2 (07:53)
[2019-04-07] MEDS: ZINC SULFATE 220 MG CAP PO (09:11)
[2019-04-07] MEDS: AMLODIPINE 5 MG TAB PO (09:11)
[2019-04-07] MEDS: ISOSORBIDE MONONITRATE(SR)30 MG TAB PO (09:11)
[2019-04-07] MEDS: LINAGLIPTIN 5 MG TABLET PO (09:11)
[2019-04-07] MEDS: BALSAM PERU/CASTOR OIL 60 GM TUBE TOP (09:12)
[2019-04-07] MEDS: METOPROLOL 50 MG TAB PO (09:13)
== END 2019-04-07 16:21 | disposition home or self-care (01) | DRG 870 ==
LOC: ICU 03-21 04:21 → TEL 03-27 12:25 → ICU 22:47 → E/R 20:26
PROC: 5A1955Z Respiratory Ventilation, Greater than 96 Consecutive Hours (ICD-10-PCS; principal; 2019-03-20)
PROC: 0BH18EZ Insertion of Endotracheal Airway into Trachea, Via Natural or Artificial Opening Endoscopic (ICD-10-PCS; 2019-03-20)
DX: A41.9 Sepsis, unspecified organism (principal); J96.01 Acute respiratory failure with hypoxia; I50.31 Acute diastolic (congestive) heart failure; J18.9 Pneumonia, unspecified organism; G92 Toxic encephalopathy; N17.0 Acute kidney failure with tubular necrosis; I13.0 Hypertensive heart and chronic kidney disease with heart failure and stage 1 through stage 4 chronic kidney disease, or unspecified chronic kidney disease; E87.2 Acidosis; E87.0 Hyperosmolality and hypernatremia; N39.0 Urinary tract infection, site not specified; N18.4 Chronic kidney disease, stage 4 (severe); E11.22 Type 2 diabetes mellitus with diabetic chronic kidney disease; F71 Moderate intellectual disabilities; N40.1 Benign prostatic hyperplasia with lower urinary tract symptoms; E03.9 Hypothyroidism, unspecified; R13.10 Dysphagia, unspecified; B96.1 Klebsiella pneumoniae [K. pneumoniae] as the cause of diseases classified elsewhere; N50.89 Other specified disorders of the male genital organs; R00.1 Bradycardia, unspecified; E11.65 Type 2 diabetes mellitus with hyperglycemia; D63.1 Anemia in chronic kidney disease; S80.12XA Contusion of left lower leg, initial encounter; X58.XXXA Exposure to other specified factors, initial encounter; R33.8 Other retention of urine
CPT/HCPCS: 31500; 36415; 36430; 36569; 36600; 71045; 73700; 76937; 80048; 80053; 80202; 81001; 81003; 82043; 82533; 82550; 82553; 82607; 82728; 82803; 82947; 82962; 83036; 83540; 83605; 83735; 83880; 83935; 84100; 84155; 84300; 84439; 84443; 84481; 84484; 85025; 86850; 86900; 86901; 86920; 87040-91; 87081; 87086; 92526; 92610; 93005; 93306; 94002; 94003; 94770; 96365; 96367; 97116; 97163; 97530; 99285-25